=== PATIENT | male | born 1935 | race Caucasian/White ===

== ENCOUNTER 2017-08-12 18:35 | Emergency (ER) | payer MEDICARE, OTHER ==
[~2017-08-12] VITALS: Ht 188 cm; Wt 65.0 kg
[~2017-08-12 18:35] MED LIST: ALPR-624 PO; ASPI81TA PEG; CLON-528 PO; ISOS30TA6 PO; LISI10TA4 PO; MYL80T PO; NITR0.4T SL; OLAN10TA19 PO; OMEP20CA10 PO
[2017-08-12 19:33] LABS: BASOPHILS % (AUTO) 0.6 % (0-1); EOSINOPHILS # (AUTO) 0.1 X10'3 (0-0.9); EOSINOPHILS % (AUTO) 2.4 % (0-6); HEMATOCRIT 40.8 % (42.0-52.0); LYMPHOCYTES # (AUTO) 1.4 X10'3 (1.1-4.8); LYMPHOCYTES % (AUTO) 25.7 % (21-51); MEAN CORPUSCULAR HEMOGLOBIN 32.7 PG (27.0-31.0); MEAN CORPUSCULAR HGB CONC 34.3 % (33.0-36.5); MEAN CORPUSCULAR VOLUME 95.2 FL (78-98); MONOCYTES # (AUTO) 0.5 X10'3 (0-0.9); MONOCYTES % (AUTO) 8.5 % (2-12); NEUTROPHILS # (AUTO) 3.5 X10'3 (1.8-7.7); NEUTROPHILS % (AUTO) 62.8 % (42-75); PLATELET COUNT 107 X10'3 (140-440); RED BLOOD COUNT 4.29 X10'6 (4.70-6.10); WHITE BLOOD COUNT 5.6 X10'3 (4.5-11.0)
[2017-08-12 19:37] LABS: INR 1.1 INR; PARTIAL THROMBOPLASTIN TIME 27 SECONDS (22-32); PROTHROMBIN TIME 10.9 SECONDS (9.0-12.0)
[2017-08-12 19:42] LABS: ALANINE AMINOTRANSFERASE 57 U/L (12-78); ALBUMIN 3.3 G/DL (3.4-5.0); ALBUMIN/GLOBULIN RATIO 0.9 (1.1-1.5); ALKALINE PHOSPHATASE 81 IU/L (46-116); ANION GAP 7 (8-16); ASPARTATE AMINO TRANSFERASE 43 U/L (10-37); BILIRUBIN,TOTAL 0.7 MG/DL (0.1-1.0); BLOOD UREA NITROGEN 13 MG/DL (7-18); BUN/CREATININE RATIO 10.7 (5.4-32.0); CALCIUM 8.8 MG/DL (8.5-10.1); CHLORIDE 96 MMOL/L (99-107); CREATININE 1.21 MG/DL (0.60-1.10); POTASSIUM 3.8 MMOL/L (3.5-5.1); SODIUM 127 MMOL/L (135-145); TOTAL CARBON DIOXIDE 24.4 MMOL/L (24-32); TOTAL PROTEIN 7.1 G/DL (6.4-8.2); eGFR 58 ML/MIN
[2017-08-12 19:43] LABS: GLUCOSE 116 MG/DL (70-104)
[2017-08-12] MEDS ORDERED: iohexol 300mg/ml 100ml inj. ONE (20:50)
[2017-08-12] MEDS ORDERED: diatr meglu/diatrizoate 30ml oral sol.-(3 dose) bottle PO ONE (22:40)
[2017-08-12 23:19] VITALS: BP 163/74
== END 2017-08-13 00:28 | disposition home or self-care (01) ==
LOC: ER 18:36
DX: R13.10 Dysphagia, unspecified (principal); R07.0 Pain in throat; I25.10 Atherosclerotic heart disease of native coronary artery without angina pectoris; I10 Essential (primary) hypertension; Z98.890 Other specified postprocedural states; Z60.2 Problems related to living alone; Z88.8 Allergy status to other drugs, medicaments and biological substances; Z88.0 Allergy status to penicillin; Z79.82 Long term (current) use of aspirin; Z79.899 Other long term (current) drug therapy
CPT/HCPCS: 36415; 70360; 70450; 70491; 71045; 71250; 80053; 84484; 85025; 85610; 85730; 93005; 99285; J7030; Q9963; Q9967

== ENCOUNTER 2017-10-06 12:42 | Observation (INO) | payer MEDICARE, OTHER ==
[~2017-10-06] VITALS: Ht 188 cm; Wt 58.5 kg
[2017-10-06 13:23] LABS: ALANINE AMINOTRANSFERASE 46 U/L (12-78); ALBUMIN 3.5 G/DL (3.4-5.0); ALBUMIN/GLOBULIN RATIO 0.8 (1.1-1.5); ALKALINE PHOSPHATASE 87 IU/L (46-116); ANION GAP 7 (8-16); ASPARTATE AMINO TRANSFERASE 35 U/L (10-37); BILIRUBIN,TOTAL 0.7 MG/DL (0.1-1.0); BLOOD UREA NITROGEN 17 MG/DL (7-18); BUN/CREATININE RATIO 14.2 (5.4-32.0); CALCIUM 8.6 MG/DL (8.5-10.1); CHLORIDE 95 MMOL/L (99-107); POTASSIUM 4.4 MMOL/L (3.5-5.1); SODIUM 131 MMOL/L (135-145); TOTAL CARBON DIOXIDE 28.8 MMOL/L (24-32); TOTAL PROTEIN 7.7 G/DL (6.4-8.2); eGFR 58 ML/MIN
[2017-10-06 13:27] LABS: TROPONIN I < 0.04 NG/ML (0.0-0.05)
[2017-10-06 13:34] LABS: GLUCOSE 125 MG/DL (70-104)
[2017-10-06] MEDS ORDERED: aspirin 325mg tablet PO ONE (13:35)
[2017-10-06 13:47] LABS: BASOPHILS % (AUTO) 0.8 % (0-1); EOSINOPHILS # (AUTO) 0.1 X10'3 (0-0.9); EOSINOPHILS % (AUTO) 1.8 % (0-6); HEMATOCRIT 41.4 % (42.0-52.0); HEMOGLOBIN 14.3 g/dl (14.0-17.9); LYMPHOCYTES # (AUTO) 1.3 X10'3 (1.1-4.8); LYMPHOCYTES % (AUTO) 22.6 % (21-51); MEAN CORPUSCULAR HEMOGLOBIN 32.5 PG (27.0-31.0); MEAN CORPUSCULAR HGB CONC 34.5 % (33.0-36.5); MEAN CORPUSCULAR VOLUME 94.3 FL (78-98); MEAN PLATELET VOLUME 6.9 FL (7.4-10.4); MONOCYTES # (AUTO) 0.6 X10'3 (0-0.9); MONOCYTES % (AUTO) 9.5 % (2-12); NEUTROPHILS # (AUTO) 3.8 X10'3 (1.8-7.7); NEUTROPHILS % (AUTO) 65.3 % (42-75); PLATELET COUNT 97 X10'3 (140-440); RED CELL DISTRIBUTION WIDTH 13.3 % (11.5-14.5); WHITE BLOOD COUNT 5.8 X10'3 (4.5-11.0)
[2017-10-06 13:58] LABS: INR 1.1 INR; PARTIAL THROMBOPLASTIN TIME 27 SECONDS (22-32); PROTHROMBIN TIME 11.2 SECONDS (9.0-12.0)
[2017-10-06] MEDS ORDERED: magnesium Cl slow-release 64mg tablet PO PRN (14:40)
[2017-10-06] MEDS ORDERED: magnesium 1gm/100ml D5W IVPB 100 ML IV PRN (14:40)
[2017-10-06] MEDS ORDERED: magnesium 4gm in 100ml NS 100 ML IV PRN (14:40)
[2017-10-06] MEDS ORDERED: potassium Cl 20 mEq SR tablet PO PRN ×2 (14:40)
[2017-10-06] MEDS ORDERED: mag hydrox/Alum hydrox/simeth 30ml oral suspension PO PRN (14:40)
[2017-10-06] MEDS ORDERED: potassium Cl 40MEQ/NS 500ml 500 ML IV PRN ×2 (14:40)
[2017-10-06] MEDS ORDERED: acetaminophen 325mg tablet PO PRN (14:40)
[2017-10-06] MEDS ORDERED: ondansetron/PF 4mg/2ml inj IV PRN (14:40)
[2017-10-06 15:50] VITALS: BP 122/74
[2017-10-06] MEDS: normal saline 1000ml 1,000 ML IV SCH ×2 (17:40→19:43)
[2017-10-06 18:00] VITALS: BP 162/72
[2017-10-06 22:00] VITALS: BP 142/64
[2017-10-07 06:00] VITALS: BP 147/63
[2017-10-07 07:19] LABS: BASOPHILS % (AUTO) 0.5 % (0-1); EOSINOPHILS # (AUTO) 0.1 X10'3 (0-0.9); EOSINOPHILS % (AUTO) 2.3 % (0-6); HEMATOCRIT 38.6 % (42.0-52.0); HEMOGLOBIN 13.4 g/dl (14.0-17.9); LYMPHOCYTES # (AUTO) 1.5 X10'3 (1.1-4.8); LYMPHOCYTES % (AUTO) 27.2 % (21-51); MEAN CORPUSCULAR HEMOGLOBIN 32.6 PG (27.0-31.0); MEAN CORPUSCULAR HGB CONC 34.8 % (33.0-36.5); MEAN CORPUSCULAR VOLUME 93.7 FL (78-98); MONOCYTES # (AUTO) 0.5 X10'3 (0-0.9); MONOCYTES % (AUTO) 8.6 % (2-12); NEUTROPHILS # (AUTO) 3.5 X10'3 (1.8-7.7); NEUTROPHILS % (AUTO) 61.4 % (42-75); PLATELET COUNT 97 X10'3 (140-440); RED BLOOD COUNT 4.12 X10'6 (4.70-6.10); RED CELL DISTRIBUTION WIDTH 13.2 % (11.5-14.5); WHITE BLOOD COUNT 5.6 X10'3 (4.5-11.0)
[2017-10-07 07:39] LABS: ALBUMIN 3.1 G/DL (3.4-5.0); ANION GAP 6 (8-16); BLOOD UREA NITROGEN 12 MG/DL (7-18); BUN/CREATININE RATIO 9.9 (5.4-32.0); CALCIUM 8.6 MG/DL (8.5-10.1); CHLORIDE 96 MMOL/L (99-107); CHOL/HDL RATIO 1.6 (0.00-4.99); CHOLESTEROL 95 MG/DL (0-200); CREATININE 1.21 MG/DL (0.60-1.10); GLUCOSE 93 MG/DL (70-104); HDL CHOLESTEROL 58 MG/DL (35-60); LDL CHOLESTEROL 34 MG/DL (50-100); MAGNESIUM 1.5 MG/DL (1.5-2.4); POTASSIUM 4.4 MMOL/L (3.5-5.1); SODIUM 129 MMOL/L (135-145); TOTAL CARBON DIOXIDE 26.8 MMOL/L (24-32); TRIGLYCERIDES 27 MG/DL (20-135); eGFR 58 ML/MIN
[2017-10-07] MEDS ORDERED: K and/or MAG REPLACEMENT MC SCH (08:00)
[2017-10-07] MEDS ORDERED: clonazePAM 1mg tablet PO SCH (08:00)
[2017-10-07] MEDS ORDERED: aspirin 325mg tablet PO SCH (08:30)
[2017-10-07] MEDS ORDERED: ALPRAZolam 0.5mg tablet PO PRN (09:45)
[2017-10-07] MEDS ORDERED: ASPI-1 PO (12:31)
[2017-10-07 14:00] VITALS: BP 119/62
[2017-10-07] MEDS ORDERED: clonazePAM 0.5mg tablet PO SCH (20:00)
[2017-10-07] MEDS ORDERED: olanzapine 10mg tablet PO SCH (21:00)
[2017-10-08] MEDS ORDERED: isosorbide mononitrate 30mg tab.SR.24H PO SCH (08:00)
[2017-10-08] MEDS ORDERED: nicotine 7mg patch - 24hr TD SCH (08:00)
[2017-10-08] MEDS ORDERED: lisinopril 10 MG tablet PO SCH (08:00)
== END 2017-10-07 16:45 | disposition home or self-care (01) ==
LOC: ER 12:43 → SSTAY O 14:37 → ORTHO 4S 16:57
PROVIDERS: ADMIT Internal Medicine; ATTEND Internal Medicine
DX: R20.2 Paresthesia of skin (principal); I25.10 Atherosclerotic heart disease of native coronary artery without angina pectoris; I10 Essential (primary) hypertension; F03.90 Unspecified dementia, unspecified severity, without behavioral disturbance, psychotic disturbance, mood disturbance, and anxiety; F41.9 Anxiety disorder, unspecified; F17.210 Nicotine dependence, cigarettes, uncomplicated; Z60.2 Problems related to living alone
CPT/HCPCS: 36415; 70450; 70544; 70547; 70551; 71045; 80048; 80053; 80061; 82948; 83735; 84484; 85025; 85610; 85730; 87070; 93005; 93880; 99285; A6258; G0378; J7030; J3490

== ENCOUNTER 2017-10-30 00:38 | Inpatient (IN) | payer MEDICARE, OTHER ==
[~2017-10-30] VITALS: Ht 188 cm; Wt 100.0 kg
[~2017-10-30 00:38] MED LIST changes: +ASPI-1 PO; -ASPI81TA PEG; -MYL80T PO; -NITR0.4T SL; -OMEP20CA10 PO
[2017-10-30] MEDS ORDERED: normal saline 1000ml 1,000 ML IV ONE (01:10)
[2017-10-30] MEDS ORDERED: meclizine 12.5mg tablet PO ONE (01:10)
[2017-10-30 02:44] LABS: BASOPHILS % (AUTO) 0.5 % (0-1); EOSINOPHILS # (AUTO) 0.1 X10'3 (0-0.9); EOSINOPHILS % (AUTO) 2.2 % (0-6); HEMATOCRIT 39.6 % (42.0-52.0); HEMOGLOBIN 13.6 g/dl (14.0-17.9); LYMPHOCYTES # (AUTO) 1.9 X10'3 (1.1-4.8); LYMPHOCYTES % (AUTO) 30.5 % (21-51); MEAN CORPUSCULAR HGB CONC 34.3 % (33.0-36.5); MEAN CORPUSCULAR VOLUME 93.5 FL (78-98); MEAN PLATELET VOLUME 7.3 FL (7.4-10.4); MONOCYTES # (AUTO) 0.5 X10'3 (0-0.9); MONOCYTES % (AUTO) 8.6 % (2-12); NEUTROPHILS # (AUTO) 3.7 X10'3 (1.8-7.7); NEUTROPHILS % (AUTO) 58.2 % (42-75); PLATELET COUNT 147 X10'3 (140-440); RED BLOOD COUNT 4.23 X10'6 (4.70-6.10); RED CELL DISTRIBUTION WIDTH 12.7 % (11.5-14.5); WHITE BLOOD COUNT 6.3 X10'3 (4.5-11.0)
[2017-10-30 02:53] LABS: ALANINE AMINOTRANSFERASE 32 U/L (12-78); ALBUMIN 3.1 G/DL (3.4-5.0); ALBUMIN/GLOBULIN RATIO 0.7 (1.1-1.5); ALKALINE PHOSPHATASE 91 IU/L (46-116); ANION GAP 7 (8-16); ASPARTATE AMINO TRANSFERASE 32 U/L (10-37); BILIRUBIN,TOTAL 0.7 MG/DL (0.1-1.0); BLOOD UREA NITROGEN 14 MG/DL (7-18); CALCIUM 8.2 MG/DL (8.5-10.1); CHLORIDE 94 MMOL/L (99-107); CREATININE 1.08 MG/DL (0.60-1.10); POTASSIUM 4.3 MMOL/L (3.5-5.1); SODIUM 128 MMOL/L (135-145); TOTAL CARBON DIOXIDE 26.7 MMOL/L (24-32); TOTAL PROTEIN 7.4 G/DL (6.4-8.2); eGFR 66 ML/MIN
[2017-10-30 03:08] LABS: GLUCOSE 97 MG/DL (70-104)
[2017-10-30] MEDS ORDERED: vancomycin/NS 1 GM ADD-VANTAGE 250 ML IV ONE (04:00)
[2017-10-30] MEDS ORDERED: vancomycin inj 1,000 MG in normal saline 250ml IV soln 250 ML IV ONE (04:00)
[2017-10-30] MEDS ORDERED: mag hydrox/Alum hydrox/simeth 30ml oral suspension PO PRN (04:30)
[2017-10-30] MEDS ORDERED: acetaminophen 650mg rectal suppository RC PRN (04:30)
[2017-10-30] MEDS ORDERED: morphine 2 MG/ML inj. syringe IV PRN ×2 (04:30)
[2017-10-30] MEDS ORDERED: magnesium hydroxide 30ml (MOM) UD suspension PO PRN (04:30)
[2017-10-30] MEDS ORDERED: acetaminophen 325mg tablet PO PRN (04:30)
[2017-10-30] MEDS ORDERED: HYDROcodone/acetaminophen 5mg/325mg tablet PO PRN (04:30)
[2017-10-30] MEDS ORDERED: HYDROmorphone 1 mg/ml syringe IV PRN ×2 (04:30)
[2017-10-30] MEDS ORDERED: metoclopramide 5 mg/ml inj IV PRN (04:30)
[2017-10-30] MEDS ORDERED: diphenhydrAMINE 25mg capsule PO PRN (04:30)
[2017-10-30] MEDS ORDERED: HYDROcodone/acetaminophen 10/325mg tab PO PRN (04:30)
[2017-10-30] MEDS ORDERED: bisacodyl 10mg suppository rectal RC PRN (04:30)
[2017-10-30] MEDS ORDERED: ondansetron/PF 4mg/2ml inj IV PRN (04:30)
[2017-10-30] MEDS ORDERED: diphenhydrAMINE 50 mg/ml inj IV PRN (04:30)
[2017-10-30 05:17] LABS: HEMOGLOBIN A1C 5.6 % (4.5-6.2)
[2017-10-30 05:30] VITALS: BP 127/67
[2017-10-30 06:11] LABS: MAGNESIUM 1.9 MG/DL (1.5-2.4); PHOSPHORUS 3.1 MG/DL (2.3-4.5)
[2017-10-30] MEDS: normal saline 1000ml 1,000 ML IV SCH ×2 (06:23→14:28)
[2017-10-30] MEDS: heparin, porcine 5000 units/ml vial SQ SCH ×2 (08:00→20:00)
[2017-10-30] MEDS ORDERED: vancomycin/NS 1 GM ADD-VANTAGE 250 ML IV SCH (08:00)
[2017-10-30] MEDS: docusate sod 100mg capsule PO SCH ×2 (08:30→20:00)
[2017-10-30] MEDS: pantoprazole 40mg Tablet.DR PO SCH (08:31)
[2017-10-30] MEDS: levoFLOXACIN-Levaquin 500mg/D5 100 ML IV SCH (08:32)
[2017-10-30] MEDS: nicotine 21mg patch - 24 hr TD SCH (08:35)
[2017-10-30] MEDS: Cipro HC otic suspension 10ML bottle RIGHT EAR SCH ×2 (08:37→19:40)
[2017-10-30 10:00] VITALS: BP 108/54
[2017-10-30] MEDS ORDERED: ASPI-611 PO (13:43)
[2017-10-30] MEDS ORDERED: CLOP75TA15 PO (13:44)
[2017-10-30] MEDS ORDERED: ATOR10TA PO (13:45)
[2017-10-30 17:00] VITALS: BP 116/63
[2017-10-30] MEDS: ALPRAZolam 0.25mg tablet PO SCH (17:41)
[2017-10-30] MEDS ORDERED: temazepam 15mg capsule PO PRN (21:00)
[2017-10-30 22:00] VITALS: BP 136/65
[2017-10-31] MEDS: normal saline 1000ml 1,000 ML IV SCH ×2 (00:28→10:28)
[2017-10-31 05:00] VITALS: BP 149/69
[2017-10-31 05:46] LABS: BASOPHILS % (AUTO) 0.7 % (0-1); EOSINOPHILS # (AUTO) 0.1 X10'3 (0-0.9); EOSINOPHILS % (AUTO) 2.7 % (0-6); HEMATOCRIT 37.6 % (42.0-52.0); HEMOGLOBIN 12.9 g/dl (14.0-17.9); LYMPHOCYTES # (AUTO) 1.5 X10'3 (1.1-4.8); MEAN CORPUSCULAR HEMOGLOBIN 31.6 PG (27.0-31.0); MEAN CORPUSCULAR HGB CONC 34.2 % (33.0-36.5); MEAN CORPUSCULAR VOLUME 92.3 FL (78-98); MEAN PLATELET VOLUME 6.8 FL (7.4-10.4); MONOCYTES # (AUTO) 0.6 X10'3 (0-0.9); NEUTROPHILS # (AUTO) 2.9 X10'3 (1.8-7.7); NEUTROPHILS % (AUTO) 56.6 % (42-75); PLATELET COUNT 133 X10'3 (140-440); RED BLOOD COUNT 4.08 X10'6 (4.70-6.10); RED CELL DISTRIBUTION WIDTH 12.8 % (11.5-14.5); WHITE BLOOD COUNT 5.2 X10'3 (4.5-11.0)
[2017-10-31] MEDS: ALPRAZolam 0.25mg tablet PO SCH ×2 (06:29→11:59)
[2017-10-31 06:36] LABS: ALANINE AMINOTRANSFERASE 18 U/L (12-78); ALBUMIN 2.8 G/DL (3.4-5.0); ALBUMIN/GLOBULIN RATIO 0.7 (1.1-1.5); ALKALINE PHOSPHATASE 78 IU/L (46-116); ANION GAP 5 (8-16); ASPARTATE AMINO TRANSFERASE 17 U/L (10-37); BILIRUBIN,TOTAL 0.9 MG/DL (0.1-1.0); BLOOD UREA NITROGEN 11 MG/DL (7-18); BUN/CREATININE RATIO 10.4 (5.4-32.0); CALCIUM 8.3 MG/DL (8.5-10.1); CHLORIDE 102 MMOL/L (99-107); CHOL/HDL RATIO 1.8 (0.00-4.99); CHOLESTEROL 85 MG/DL (0-200); CREATININE 1.06 MG/DL (0.60-1.10); GLUCOSE 91 MG/DL (70-104); HDL CHOLESTEROL 46 MG/DL (35-60); LDL CHOLESTEROL 34 MG/DL (50-100); POTASSIUM 4.3 MMOL/L (3.5-5.1); SODIUM 135 MMOL/L (135-145); TOTAL CARBON DIOXIDE 27.6 MMOL/L (24-32); TOTAL PROTEIN 6.6 G/DL (6.4-8.2); TRIGLYCERIDES 22 MG/DL (20-135); eGFR 67 ML/MIN
[2017-10-31] MEDS: docusate sod 100mg capsule PO SCH (07:08)
[2017-10-31] MEDS: levoFLOXACIN-Levaquin 500mg/D5 100 ML IV SCH (07:08)
[2017-10-31] MEDS: nicotine 21mg patch - 24 hr TD SCH ×2 (07:08→08:00)
[2017-10-31] MEDS: pantoprazole 40mg Tablet.DR PO SCH (07:08)
[2017-10-31] MEDS: Cipro HC otic suspension 10ML bottle RIGHT EAR SCH (07:09)
[2017-10-31] MEDS: heparin, porcine 5000 units/ml vial SQ SCH (07:11)
[2017-10-31 11:05] VITALS: BP 152/69
[2017-10-31] MEDS ORDERED: NICO-687 TD (11:17)
[2017-10-31] MEDS ORDERED: LEVO500T2 PO (11:17)
[2017-11-01] MEDS ORDERED: VANCOMYCIN LEVEL IV NR (02:30)
[2017-11-01] MEDS ORDERED: levoFLOXACIN 500mg tablet PO SCH (11:00)
== END 2017-10-31 13:25 | disposition home or self-care (01) | DRG 153 ==
LOC: ER 00:38 → ED HOLD 04:28 → ORTHO 4S 05:40
PROVIDERS: ADMIT Family Medicine; ATTEND Family Medicine
DX: H70.91 Unspecified mastoiditis, right ear (principal); E87.1 Hypo-osmolality and hyponatremia; H66.91 Otitis media, unspecified, right ear; E78.00 Pure hypercholesterolemia, unspecified; J32.4 Chronic pansinusitis; I11.0 Hypertensive heart disease with heart failure; F41.1 Generalized anxiety disorder; Z60.2 Problems related to living alone; I50.9 Heart failure, unspecified; F03.90 Unspecified dementia, unspecified severity, without behavioral disturbance, psychotic disturbance, mood disturbance, and anxiety; F17.210 Nicotine dependence, cigarettes, uncomplicated; I25.10 Atherosclerotic heart disease of native coronary artery without angina pectoris; F41.9 Anxiety disorder, unspecified; Z88.1 Allergy status to other antibiotic agents; Z88.0 Allergy status to penicillin; Z79.899 Other long term (current) drug therapy; Z79.82 Long term (current) use of aspirin; Z71.6 Tobacco abuse counseling
CPT/HCPCS: 36415; 70450; 80053; 80061; 83036; 83605; 83735; 83880; 84100; 85025; 87040; 87070; 96361; 96374; 97110; 97116; 97162; 97530; 99285; A6209; A6449; J1644; J1956; J3370; J7030; J8597

== ENCOUNTER 2017-11-14 10:25 | Inpatient (IN) | payer MEDICARE, OTHER ==
[~2017-11-14] VITALS: Ht 188 cm; Wt 77.1 kg
[~2017-11-14 10:25] MED LIST changes: -ASPI-1 PO; +ASPI-611 PO; +ATOR10TA PO; +CLOP75TA15 PO; +LEVO500T2 PO; -LISI10TA4 PO; +NICO-687 TD
[2017-11-14] MEDS ORDERED: normal saline 1000ML IV soln IVB ONE (10:40)
[2017-11-14 11:06] LABS: BASOPHILS % (AUTO) 0.5 % (0-1); EOSINOPHILS # (AUTO) 0.1 X10'3 (0-0.9); EOSINOPHILS % (AUTO) 1.2 % (0-6); HEMATOCRIT 36.8 % (42.0-52.0); HEMOGLOBIN 12.7 g/dl (14.0-17.9); LYMPHOCYTES # (AUTO) 0.9 X10'3 (1.1-4.8); LYMPHOCYTES % (AUTO) 16.6 % (21-51); MEAN CORPUSCULAR HEMOGLOBIN 32.3 PG (27.0-31.0); MEAN CORPUSCULAR HGB CONC 34.6 % (33.0-36.5); MEAN CORPUSCULAR VOLUME 93.5 FL (78-98); MEAN PLATELET VOLUME 7.6 FL (7.4-10.4); MONOCYTES # (AUTO) 0.5 X10'3 (0-0.9); MONOCYTES % (AUTO) 10.2 % (2-12); NEUTROPHILS # (AUTO) 3.8 X10'3 (1.8-7.7); NEUTROPHILS % (AUTO) 71.5 % (42-75); PLATELET COUNT 94 X10'3 (140-440); RED BLOOD COUNT 3.94 X10'6 (4.70-6.10); RED CELL DISTRIBUTION WIDTH 12.9 % (11.5-14.5); WHITE BLOOD COUNT 5.3 X10'3 (4.5-11.0)
[2017-11-14 11:13] LABS: INR 1.1 INR; PROTHROMBIN TIME 11.8 SECONDS (9.0-12.0)
[2017-11-14 11:20] LABS: ALANINE AMINOTRANSFERASE 36 U/L (12-78); ALBUMIN/GLOBULIN RATIO 0.8 (1.1-1.5); ALKALINE PHOSPHATASE 83 IU/L (46-116); ANION GAP 5 (8-16); ASPARTATE AMINO TRANSFERASE 33 U/L (10-37); BILIRUBIN,TOTAL 0.7 MG/DL (0.1-1.0); BLOOD UREA NITROGEN 17 MG/DL (7-18); BUN/CREATININE RATIO 14.7 (5.4-32.0); CALCIUM 8.4 MG/DL (8.5-10.1); CHLORIDE 97 MMOL/L (99-107); CREATININE 1.16 MG/DL (0.60-1.10); GLUCOSE 105 MG/DL (70-104); SODIUM 132 MMOL/L (135-145); TOTAL CARBON DIOXIDE 30.4 MMOL/L (24-32); TOTAL PROTEIN 6.7 G/DL (6.4-8.2); eGFR 60 ML/MIN
[2017-11-14 11:22] LABS: TROPONIN I < 0.04 NG/ML (0.0-0.05)
[2017-11-14 11:23] LABS: ETHANOL < 0.010 GM/DL (0.0-0.010)
[2017-11-14] MEDS ORDERED: mag hydrox/Alum hydrox/simeth 30ml oral suspension PO PRN (11:50)
[2017-11-14] MEDS ORDERED: magnesium 1gm/100ml D5W IVPB 100 ML IV PRN (11:50)
[2017-11-14] MEDS ORDERED: potassium Cl 40MEQ/NS 500ml 500 ML IV PRN ×2 (11:50)
[2017-11-14] MEDS ORDERED: haloperidol lactate 5mg/ml inj IM PRN (11:50)
[2017-11-14] MEDS ORDERED: morphine 2 MG/ML inj. syringe IV PRN ×2 (11:50)
[2017-11-14] MEDS ORDERED: bisacodyl 10mg suppository rectal RC PRN (11:50)
[2017-11-14] MEDS ORDERED: acetaminophen 325mg tablet PO PRN (11:50)
[2017-11-14] MEDS ORDERED: LORazepam 2 mg/ml vial IV PRN (11:50)
[2017-11-14] MEDS ORDERED: ipratropium/albuterol 3ml nebule NEB PRN (11:50)
[2017-11-14] MEDS ORDERED: dextrose 50%-water 50ml dispensing syringe IV PRN (11:50)
[2017-11-14] MEDS ORDERED: haloperidol 5mg tablet PO PRN (11:50)
[2017-11-14] MEDS ORDERED: LORazepam 1 MG tablet PO PRN (11:50)
[2017-11-14] MEDS ORDERED: docusate sod 100mg capsule PO PRN (11:50)
[2017-11-14] MEDS ORDERED: magnesium 4gm in 100ml NS 100 ML IV PRN (11:50)
[2017-11-14] MEDS ORDERED: potassium Cl 20 mEq SR tablet PO PRN ×2 (11:50)
[2017-11-14] MEDS ORDERED: ondansetron/PF 4mg/2ml inj IV PRN (11:50)
[2017-11-14] MEDS ORDERED: thiamine 100mg/ml 2ml inj. IV ONE (11:50)
[2017-11-14] MEDS ORDERED: ALPRAZolam 0.5mg tablet PO PRN (13:45)
[2017-11-14 14:13] LABS: CLARITY,URINE CLEAR (Clear); COLOR,URINE YELLOW (Yellow); GLUCOSE, URINE 250 mg/dl (Neg); KETONES,URINE NEGATIVE (Neg); LEUKOCYTE ESTERASE ,URINE NEGATIVE (Neg); NITRITES, URINE NEGATIVE (Neg); OCCULT BLOOD,URINE NEGATIVE (Neg); PROTEIN,URINE NEGATIVE (Neg)
[2017-11-14 14:20] LABS: UA COLLECTION TYPE CLN CATCH MIDSTREAM
[2017-11-14 14:25] LABS: URINE AMPHETAMINE SCREEN NEGATIVE (Neg); URINE BARBITUATE SCREEN NEGATIVE (Neg); URINE BENZODIAZEPINES SCREEN POSITIVE (Neg); URINE CANNABINOID SCREEN NEGATIVE (Neg); URINE COCAINE SCREEN NEGATIVE (Neg); URINE METHADONE SCREEN NEGATIVE (Neg); URINE OPIATE SCREEN NEGATIVE (Neg); URINE PHENCYCLIDINE SCREEN NEGATIVE (Neg)
[2017-11-14 14:28] VITALS: BP 145/91
[2017-11-14] MEDS: nicotine 21mg patch - 24 hr TD SCH (15:33)
[2017-11-14] MEDS: normal saline 1000ml 1,000 ML IV SCH ×2 (15:33→23:56)
[2017-11-14] MEDS ORDERED: LORazepam 2 mg/ml vial IV ONE (17:15)
[2017-11-14 18:30] VITALS: BP 151/68
[2017-11-14] MEDS: clonazePAM 0.5mg tablet PO SCH (19:37)
[2017-11-14] MEDS ORDERED: olanzapine 10mg tablet PO SCH (21:00)
[2017-11-15] VITALS: BP 121/61
[2017-11-15 05:51] LABS: BASOPHILS % (AUTO) 0.5 % (0-1); EOSINOPHILS # (AUTO) 0.1 X10'3 (0-0.9); EOSINOPHILS % (AUTO) 2.6 % (0-6); HEMATOCRIT 33.4 % (42.0-52.0); HEMOGLOBIN 11.8 g/dl (14.0-17.9); LYMPHOCYTES # (AUTO) 1.7 X10'3 (1.1-4.8); MEAN CORPUSCULAR HEMOGLOBIN 33.2 PG (27.0-31.0); MEAN CORPUSCULAR HGB CONC 35.2 % (33.0-36.5); MEAN CORPUSCULAR VOLUME 94.1 FL (78-98); MEAN PLATELET VOLUME 8.1 FL (7.4-10.4); MONOCYTES # (AUTO) 0.5 X10'3 (0-0.9); MONOCYTES % (AUTO) 10.4 % (2-12); NEUTROPHILS # (AUTO) 2.9 X10'3 (1.8-7.7); NEUTROPHILS % (AUTO) 53.5 % (42-75); PLATELET COUNT 83 X10'3 (140-440); RED BLOOD COUNT 3.55 X10'6 (4.70-6.10); RED CELL DISTRIBUTION WIDTH 12.4 % (11.5-14.5); WHITE BLOOD COUNT 5.2 X10'3 (4.5-11.0)
[2017-11-15 06:04] LABS: ALANINE AMINOTRANSFERASE 32 U/L (12-78); ALBUMIN 2.8 G/DL (3.4-5.0); ALBUMIN/GLOBULIN RATIO 0.8 (1.1-1.5); ALKALINE PHOSPHATASE 76 IU/L (46-116); ANION GAP 7 (8-16); ASPARTATE AMINO TRANSFERASE 35 U/L (10-37); BILIRUBIN,TOTAL 0.8 MG/DL (0.1-1.0); BLOOD UREA NITROGEN 13 MG/DL (7-18); BUN/CREATININE RATIO 11.3 (5.4-32.0); CHLORIDE 100 MMOL/L (99-107); CHOL/HDL RATIO 1.8 (0.00-4.99); CHOLESTEROL 92 MG/DL (0-200); CREATININE 1.15 MG/DL (0.60-1.10); GLUCOSE 87 MG/DL (70-104); HDL CHOLESTEROL 50 MG/DL (35-60); LDL CHOLESTEROL 36 MG/DL (50-100); MAGNESIUM 1.7 MG/DL (1.5-2.4); POTASSIUM 4.2 MMOL/L (3.5-5.1); SODIUM 134 MMOL/L (135-145); TOTAL CARBON DIOXIDE 26.8 MMOL/L (24-32); TOTAL PROTEIN 6.4 G/DL (6.4-8.2); TRIGLYCERIDES 29 MG/DL (20-135); eGFR 61 ML/MIN
[2017-11-15 07:00] VITALS: BP 125/62
[2017-11-15] MEDS: clonazePAM 0.5mg tablet PO SCH (07:26)
[2017-11-15] MEDS: nicotine 21mg patch - 24 hr TD SCH (07:27)
[2017-11-15] MEDS ORDERED: clopidogrel 75mg tablet PO SCH (08:00)
[2017-11-15] MEDS ORDERED: atorvastatin 10mg tablet PO SCH (08:00)
[2017-11-15] MEDS ORDERED: K and/or MAG REPLACEMENT MC SCH (08:00)
[2017-11-15] MEDS ORDERED: isosorbide mononitrate 30mg tab.SR.24H PO SCH (08:00)
[2017-11-15] MEDS ORDERED: aspirin 81mg tablet.DR PO SCH (08:00)
== END 2017-11-15 12:15 | disposition home health service (06) | DRG 312 ==
LOC: ER 10:26 → ED HOLD 11:49 → EDBEDREQ 12:46 → SUR 3N 13:57
PROVIDERS: ADMIT Family Medicine; ATTEND Internal Medicine
DX: R55 Syncope and collapse (principal); D69.6 Thrombocytopenia, unspecified; E78.00 Pure hypercholesterolemia, unspecified; E86.0 Dehydration; F03.90 Unspecified dementia, unspecified severity, without behavioral disturbance, psychotic disturbance, mood disturbance, and anxiety; F17.210 Nicotine dependence, cigarettes, uncomplicated; F41.9 Anxiety disorder, unspecified; G25.0 Essential tremor; H55.09 Other forms of nystagmus; H70.91 Unspecified mastoiditis, right ear; I10 Essential (primary) hypertension; R56.9 Unspecified convulsions; Z60.2 Problems related to living alone; S81.812A Laceration without foreign body, left lower leg, initial encounter; S81.811A Laceration without foreign body, right lower leg, initial encounter; W01.0XXA Fall on same level from slipping, tripping and stumbling without subsequent striking against object, initial encounter; Y93.01 Activity, walking, marching and hiking; I25.10 Atherosclerotic heart disease of native coronary artery without angina pectoris; N28.9 Disorder of kidney and ureter, unspecified; R32 Unspecified urinary incontinence; Z79.02 Long term (current) use of antithrombotics/antiplatelets; Z79.82 Long term (current) use of aspirin; Z88.0 Allergy status to penicillin; Z88.8 Allergy status to other drugs, medicaments and biological substances; Z79.899 Other long term (current) drug therapy; Y92.488 Other paved roadways as the place of occurrence of the external cause; Y99.8 Other external cause status
CPT/HCPCS: 36415; 70450; 70544; 70547; 70551; 71045; 73590; 80053; 80061; 80305; 80320; 81003; 82948; 83605; 83735; 84484; 85025; 85610; 87040; 87070; 87077; 87186; 92616; 93005; 93306; 94760; 96360; 99285; A4310; J2060; J3411; J3490; J7030

== ENCOUNTER 2017-12-09 16:45 | Emergency (ER) | payer MEDICARE, OTHER ==
[~2017-12-09] VITALS: Ht 188 cm; Wt 80.0 kg
[~2017-12-09 16:45] MED LIST changes: -LEVO500T2 PO
[2017-12-09 16:53] VITALS: BP 119/57
[2017-12-09 17:41] LABS: BASOPHILS % (AUTO) 0.4 % (0-1); EOSINOPHILS # (AUTO) 0.1 X10'3 (0-0.9); EOSINOPHILS % (AUTO) 1.3 % (0-6); HEMATOCRIT 38.9 % (42.0-52.0); LYMPHOCYTES # (AUTO) 1.5 X10'3 (1.1-4.8); LYMPHOCYTES % (AUTO) 18.6 % (21-51); MEAN CORPUSCULAR HEMOGLOBIN 31.7 PG (27.0-31.0); MEAN CORPUSCULAR HGB CONC 33.4 % (33.0-36.5); MEAN CORPUSCULAR VOLUME 95.1 FL (78-98); MEAN PLATELET VOLUME 7.5 FL (7.4-10.4); MONOCYTES # (AUTO) 0.8 X10'3 (0-0.9); MONOCYTES % (AUTO) 9.3 % (2-12); NEUTROPHILS # (AUTO) 5.7 X10'3 (1.8-7.7); NEUTROPHILS % (AUTO) 70.4 % (42-75); PLATELET COUNT 118 X10'3 (140-440); RED BLOOD COUNT 4.09 X10'6 (4.70-6.10); RED CELL DISTRIBUTION WIDTH 14.1 % (11.5-14.5); WHITE BLOOD COUNT 8.1 X10'3 (4.5-11.0)
[2017-12-09 17:55] LABS: ALANINE AMINOTRANSFERASE 29 U/L (12-78); ALBUMIN 3.1 G/DL (3.4-5.0); ALBUMIN/GLOBULIN RATIO 0.8 (1.1-1.5); ALKALINE PHOSPHATASE 95 IU/L (46-116); ANION GAP 5 (8-16); ASPARTATE AMINO TRANSFERASE 26 U/L (10-37); BILIRUBIN,TOTAL 0.9 MG/DL (0.1-1.0); BLOOD UREA NITROGEN 18 MG/DL (7-18); BUN/CREATININE RATIO 15.5 (5.4-32.0); CALCIUM 8.9 MG/DL (8.5-10.1); CHLORIDE 95 MMOL/L (99-107); CREATININE 1.16 MG/DL (0.60-1.10); GLUCOSE 103 MG/DL (70-104); POTASSIUM 4.4 MMOL/L (3.5-5.1); SODIUM 129 MMOL/L (135-145); TOTAL CARBON DIOXIDE 29.1 MMOL/L (24-32); TOTAL PROTEIN 7.2 G/DL (6.4-8.2); eGFR 60 ML/MIN
[2017-12-09 18:02] LABS: PROTHROMBIN TIME 10.8 SECONDS (9.0-12.0)
[2017-12-09 18:03] LABS: INR 1.1 INR; PARTIAL THROMBOPLASTIN TIME 28 SECONDS (22-32)
== END 2017-12-09 18:48 | disposition home or self-care (01) ==
LOC: ER 16:46
DX: R07.89 Other chest pain (principal); F17.200 Nicotine dependence, unspecified, uncomplicated; I25.10 Atherosclerotic heart disease of native coronary artery without angina pectoris; E78.00 Pure hypercholesterolemia, unspecified; I10 Essential (primary) hypertension; Z98.890 Other specified postprocedural states; Z88.1 Allergy status to other antibiotic agents; Z88.0 Allergy status to penicillin; Z79.82 Long term (current) use of aspirin; Z79.899 Other long term (current) drug therapy
CPT/HCPCS: 36415; 71045; 80053; 84484; 85025; 85610; 85730; 93005; 99285

== ENCOUNTER 2018-02-10 14:42 | Emergency (ER) | payer MEDICARE, OTHER ==
[~2018-02-10] VITALS: Ht 188 cm; Wt 75.0 kg
[2018-02-10 15:07] LABS: BASOPHILS % (AUTO) 0.7 % (0-1); EOSINOPHILS # (AUTO) 0.1 X10'3 (0-0.9); EOSINOPHILS % (AUTO) 2.4 % (0-6); HEMATOCRIT 43.2 % (42.0-52.0); HEMOGLOBIN 14.5 g/dl (14.0-17.9); LYMPHOCYTES # (AUTO) 1.5 X10'3 (1.1-4.8); LYMPHOCYTES % (AUTO) 26.7 % (21-51); MEAN CORPUSCULAR HEMOGLOBIN 31.1 PG (27.0-31.0); MEAN CORPUSCULAR HGB CONC 33.5 % (33.0-36.5); MEAN CORPUSCULAR VOLUME 92.7 FL (78-98); MEAN PLATELET VOLUME 7.5 FL (7.4-10.4); MONOCYTES # (AUTO) 0.6 X10'3 (0-0.9); MONOCYTES % (AUTO) 10.8 % (2-12); NEUTROPHILS # (AUTO) 3.3 X10'3 (1.8-7.7); NEUTROPHILS % (AUTO) 59.4 % (42-75); PLATELET COUNT 119 X10'3 (140-440); RED BLOOD COUNT 4.66 X10'6 (4.70-6.10); RED CELL DISTRIBUTION WIDTH 14.5 % (11.5-14.5); WHITE BLOOD COUNT 5.6 X10'3 (4.5-11.0)
[2018-02-10 15:34] LABS: ALANINE AMINOTRANSFERASE 49 U/L (12-78); ALBUMIN 3.5 G/DL (3.4-5.0); ALBUMIN/GLOBULIN RATIO 0.8 (1.1-1.5); ALKALINE PHOSPHATASE 94 IU/L (46-116); ANION GAP 8 (8-16); ASPARTATE AMINO TRANSFERASE 41 U/L (10-37); BLOOD UREA NITROGEN 14 MG/DL (7-18); BUN/CREATININE RATIO 12.7 (5.4-32.0); CALCIUM 8.6 MG/DL (8.5-10.1); CHLORIDE 92 MMOL/L (99-107); GLUCOSE 93 MG/DL (70-104); POTASSIUM 4.7 MMOL/L (3.5-5.1); SODIUM 128 MMOL/L (135-145); TOTAL PROTEIN 7.7 G/DL (6.4-8.2); eGFR 64 ML/MIN
[2018-02-10 16:04] LABS: PROTHROMBIN TIME 11.3 SECONDS (9.0-12.0)
[2018-02-10 16:05] LABS: INR 1.1 INR; PARTIAL THROMBOPLASTIN TIME 29 SECONDS (22-32)
[2018-02-10 16:35] VITALS: BP 179/68
[2018-02-10] MEDS ORDERED: levoFLOXACIN 250mg tablet PO ONE (17:05)
[2018-02-10] MEDS ORDERED: LEVO500T2 PO (17:06)
== END 2018-02-10 17:36 | disposition home or self-care (01) ==
LOC: ER 14:43
DX: J18.9 Pneumonia, unspecified organism (principal); I25.10 Atherosclerotic heart disease of native coronary artery without angina pectoris; E78.00 Pure hypercholesterolemia, unspecified; I10 Essential (primary) hypertension; F17.210 Nicotine dependence, cigarettes, uncomplicated; Z98.890 Other specified postprocedural states; Z88.1 Allergy status to other antibiotic agents; Z88.0 Allergy status to penicillin; Z79.82 Long term (current) use of aspirin; Z79.899 Other long term (current) drug therapy; Z60.2 Problems related to living alone
CPT/HCPCS: 36415; 71045; 80053; 83880; 84484; 85025; 85610; 85730; 87502; 87503; 93005; 99284

== ENCOUNTER 2018-03-16 17:20 | Emergency (ER) | payer MEDICARE, OTHER ==
[~2018-03-16] VITALS: Ht 188 cm; Wt 77.3 kg
[~2018-03-16 17:20] MED LIST changes: +ALPR0.5T8 PO; +LISI-644 PO; +OLAN10TA3 PO
[2018-03-16 17:27] VITALS: BP 175/91
[2018-03-16 18:24] LABS: BASOPHILS % (AUTO) 0.6 % (0-1); EOSINOPHILS # (AUTO) 0.1 X10'3 (0-0.9); EOSINOPHILS % (AUTO) 2.1 % (0-6); HEMATOCRIT 44.5 % (42.0-52.0); HEMOGLOBIN 15.1 g/dl (14.0-17.9); LYMPHOCYTES # (AUTO) 2.1 X10'3 (1.1-4.8); LYMPHOCYTES % (AUTO) 30.7 % (21-51); MEAN CORPUSCULAR HEMOGLOBIN 31.4 PG (27.0-31.0); MEAN CORPUSCULAR HGB CONC 33.8 g/dL (33.0-36.5); MEAN CORPUSCULAR VOLUME 92.9 FL (78-98); MEAN PLATELET VOLUME 8.1 FL (7.4-10.4); MONOCYTES # (AUTO) 0.6 X10'3 (0-0.9); MONOCYTES % (AUTO) 9.4 % (2-12); NEUTROPHILS # (AUTO) 3.9 X10'3 (1.8-7.7); NEUTROPHILS % (AUTO) 57.2 % (42-75); PLATELET COUNT 103 X10'3 (140-440); RED BLOOD COUNT 4.79 X10'6 (4.70-6.10); RED CELL DISTRIBUTION WIDTH 14.6 % (11.5-14.5); WHITE BLOOD COUNT 6.9 X10'3 (4.5-11.0)
[2018-03-16 18:39] LABS: ALANINE AMINOTRANSFERASE 45 U/L (12-78); ALBUMIN 3.6 G/DL (3.4-5.0); ALBUMIN/GLOBULIN RATIO 0.9 (1.1-1.5); ALKALINE PHOSPHATASE 98 IU/L (46-116); ANION GAP 8 (8-16); ASPARTATE AMINO TRANSFERASE 35 U/L (10-37); BILIRUBIN,TOTAL 0.7 MG/DL (0.1-1.0); BLOOD UREA NITROGEN 21 MG/DL (7-18); BUN/CREATININE RATIO 15.9 (5.4-32.0); CHLORIDE 98 MMOL/L (99-107); CREATININE 1.32 MG/DL (0.60-1.10); GLUCOSE 121 MG/DL (70-104); SODIUM 135 MMOL/L (135-145); TOTAL CARBON DIOXIDE 28.7 MMOL/L (24-32); TOTAL PROTEIN 7.7 G/DL (6.4-8.2); eGFR 52 ML/MIN
== END 2018-03-16 20:28 | disposition left against medical advice (07) ==
LOC: ER 17:21
DX: Z53.21 Procedure and treatment not carried out due to patient leaving prior to being seen by health care provider (principal); R53.1 Weakness
CPT/HCPCS: 36415; 80053; 85025; 93005

== ENCOUNTER 2018-04-11 22:28 | Emergency (ER) | payer MEDICARE, OTHER ==
[~2018-04-11] VITALS: Ht 188 cm; Wt 77.2 kg
[2018-04-11 22:55] LABS: BASOPHILS % (AUTO) 0.8 % (0-1); EOSINOPHILS # (AUTO) 0.1 X10'3 (0-0.9); EOSINOPHILS % (AUTO) 1.4 % (0-6); HEMATOCRIT 42.1 % (42.0-52.0); HEMOGLOBIN 14.3 g/dl (14.0-17.9); MEAN CORPUSCULAR HEMOGLOBIN 31.2 PG (27.0-31.0); MONOCYTES # (AUTO) 0.5 X10'3 (0-0.9); MONOCYTES % (AUTO) 8.9 % (2-12); NEUTROPHILS # (AUTO) 3.2 X10'3 (1.8-7.7); NEUTROPHILS % (AUTO) 54.9 % (42-75); PLATELET COUNT 95 X10'3 (140-440); RED BLOOD COUNT 4.58 X10'6 (4.70-6.10); RED CELL DISTRIBUTION WIDTH 14.4 % (11.5-14.5); WHITE BLOOD COUNT 5.9 X10'3 (4.5-11.0)
[2018-04-11 23:08] LABS: INR 1.1 INR; PARTIAL THROMBOPLASTIN TIME 28 SECONDS (22-32); PROTHROMBIN TIME 11.4 SECONDS (9.0-12.0)
[2018-04-11 23:15] LABS: ALANINE AMINOTRANSFERASE 63 U/L (12-78); ALBUMIN 3.6 G/DL (3.4-5.0); ALBUMIN/GLOBULIN RATIO 0.9 (1.1-1.5); ALKALINE PHOSPHATASE 94 IU/L (46-116); ANION GAP 7 (8-16); ASPARTATE AMINO TRANSFERASE 50 U/L (10-37); BILIRUBIN,TOTAL 0.8 MG/DL (0.1-1.0); BLOOD UREA NITROGEN 16 MG/DL (7-18); BUN/CREATININE RATIO 12.8 (5.4-32.0); CALCIUM 8.7 MG/DL (8.5-10.1); CHLORIDE 96 MMOL/L (99-107); CREATININE 1.25 MG/DL (0.60-1.10); POTASSIUM 4.1 MMOL/L (3.5-5.1); SODIUM 129 MMOL/L (135-145); TOTAL CARBON DIOXIDE 25.7 MMOL/L (24-32); TOTAL PROTEIN 7.5 G/DL (6.4-8.2); eGFR 55 ML/MIN
[2018-04-11 23:34] LABS: GLUCOSE 140 MG/DL (70-104)
[2018-04-12 01:43] VITALS: BP 156/53
== END 2018-04-12 01:45 | disposition home or self-care (01) ==
LOC: ER 22:28
DX: R07.9 Chest pain, unspecified (principal); F41.9 Anxiety disorder, unspecified; E78.00 Pure hypercholesterolemia, unspecified; I25.10 Atherosclerotic heart disease of native coronary artery without angina pectoris; I10 Essential (primary) hypertension; Z88.0 Allergy status to penicillin; Z88.1 Allergy status to other antibiotic agents; Z79.82 Long term (current) use of aspirin; Z79.899 Other long term (current) drug therapy
CPT/HCPCS: 36415; 71045; 80053; 84484; 85025; 85610; 85730; 93005; 99284

== ENCOUNTER 2018-06-08 12:18 | Emergency (ER) | payer MEDICARE, OTHER ==
[~2018-06-08] VITALS: Ht 188 cm; Wt 76.0 kg
[2018-06-08 13:04] LABS: BASOPHILS % (AUTO) 0.6 % (0-1); EOSINOPHILS # (AUTO) 0.1 X10'3 (0-0.9); EOSINOPHILS % (AUTO) 1.1 % (0-6); HEMATOCRIT 43.8 % (42.0-52.0); HEMOGLOBIN 14.8 g/dl (14.0-17.9); LYMPHOCYTES # (AUTO) 1.1 X10'3 (1.1-4.8); LYMPHOCYTES % (AUTO) 19.9 % (21-51); MEAN CORPUSCULAR HGB CONC 33.7 g/dL (33.0-36.5); MEAN CORPUSCULAR VOLUME 94.8 FL (78-98); MEAN PLATELET VOLUME 8.1 FL (7.4-10.4); MONOCYTES # (AUTO) 0.5 X10'3 (0-0.9); MONOCYTES % (AUTO) 9.5 % (2-12); NEUTROPHILS # (AUTO) 3.8 X10'3 (1.8-7.7); NEUTROPHILS % (AUTO) 68.9 % (42-75); PLATELET COUNT 103 X10'3 (140-440); RED BLOOD COUNT 4.62 X10'6 (4.70-6.10); RED CELL DISTRIBUTION WIDTH 14.4 % (11.5-14.5); WHITE BLOOD COUNT 5.5 X10'3 (4.5-11.0)
[2018-06-08 13:20] LABS: INR 1.1 INR; PARTIAL THROMBOPLASTIN TIME 28 SECONDS (22-32)
[2018-06-08 13:21] LABS: ALANINE AMINOTRANSFERASE 66 U/L (12-78); ALBUMIN 3.5 G/DL (3.4-5.0); ALBUMIN/GLOBULIN RATIO 0.9 (1.1-1.5); ALKALINE PHOSPHATASE 103 IU/L (46-116); ANION GAP 5 (8-16); ASPARTATE AMINO TRANSFERASE 50 U/L (10-37); BILIRUBIN,TOTAL 0.8 MG/DL (0.1-1.0); BLOOD UREA NITROGEN 13 MG/DL (7-18); BUN/CREATININE RATIO 12.9 (5.4-32.0); CALCIUM 9.5 MG/DL (8.5-10.1); CHLORIDE 100 MMOL/L (99-107); CREATININE 1.01 MG/DL (0.60-1.10); GLUCOSE 95 MG/DL (70-104); POTASSIUM 4.4 MMOL/L (3.5-5.1); SODIUM 135 MMOL/L (135-145); TOTAL CARBON DIOXIDE 30.2 MMOL/L (24-32); TOTAL PROTEIN 7.4 G/DL (6.4-8.2); eGFR 71 ML/MIN
[2018-06-08 15:47] VITALS: BP 119/75
== END 2018-06-08 15:48 | disposition home or self-care (01) ==
LOC: ER 12:18
DX: R07.89 Other chest pain (principal); R42 Dizziness and giddiness; I25.10 Atherosclerotic heart disease of native coronary artery without angina pectoris; E78.00 Pure hypercholesterolemia, unspecified; I10 Essential (primary) hypertension; F17.200 Nicotine dependence, unspecified, uncomplicated; Z98.890 Other specified postprocedural states; Z88.0 Allergy status to penicillin; Z88.8 Allergy status to other drugs, medicaments and biological substances; Z79.82 Long term (current) use of aspirin; Z79.899 Other long term (current) drug therapy
CPT/HCPCS: 36415; 71045; 80053; 84484; 85025; 85610; 85730; 93005; 99284

== ENCOUNTER 2018-06-13 17:00 | Emergency (ER) | payer MEDICARE, OTHER ==
[~2018-06-13] VITALS: Ht 188 cm; Wt 81.8 kg
[2018-06-13] MEDS ORDERED: aspirin 325mg tablet PO ONE (17:10)
[2018-06-13] MEDS ORDERED: clonazePAM 0.5mg tablet PO ONE (17:25)
[2018-06-13 17:37] LABS: BASOPHILS % (AUTO) 0.8 % (0-1); EOSINOPHILS # (AUTO) 0.1 X10'3 (0-0.9); EOSINOPHILS % (AUTO) 1.6 % (0-6); HEMATOCRIT 43.2 % (42.0-52.0); HEMOGLOBIN 14.9 g/dl (14.0-17.9); LYMPHOCYTES # (AUTO) 1.4 X10'3 (1.1-4.8); LYMPHOCYTES % (AUTO) 25.1 % (21-51); MEAN CORPUSCULAR HEMOGLOBIN 32.4 PG (27.0-31.0); MEAN CORPUSCULAR HGB CONC 34.5 g/dL (33.0-36.5); MEAN CORPUSCULAR VOLUME 93.8 FL (78-98); MEAN PLATELET VOLUME 8.1 FL (7.4-10.4); MONOCYTES # (AUTO) 0.7 X10'3 (0-0.9); MONOCYTES % (AUTO) 11.5 % (2-12); NEUTROPHILS # (AUTO) 3.5 X10'3 (1.8-7.7); PLATELET COUNT 105 X10'3 (140-440); RED BLOOD COUNT 4.61 X10'6 (4.70-6.10); RED CELL DISTRIBUTION WIDTH 14.9 % (11.5-14.5); WHITE BLOOD COUNT 5.7 X10'3 (4.5-11.0)
[2018-06-13 17:45] LABS: INR 1.1 INR; PARTIAL THROMBOPLASTIN TIME 27 SECONDS (22-32)
[2018-06-13 17:46] LABS: ALANINE AMINOTRANSFERASE 72 U/L (12-78); ALBUMIN 3.7 G/DL (3.4-5.0); ALBUMIN/GLOBULIN RATIO 0.9 (1.1-1.5); ALKALINE PHOSPHATASE 107 IU/L (46-116); ANION GAP 1 (8-16); ASPARTATE AMINO TRANSFERASE 50 U/L (10-37); BILIRUBIN,TOTAL 0.7 MG/DL (0.1-1.0); BLOOD UREA NITROGEN 17 MG/DL (7-18); CALCIUM 9.4 MG/DL (8.5-10.1); CHLORIDE 99 MMOL/L (99-107); CREATININE 1.21 MG/DL (0.60-1.10); GLUCOSE 112 MG/DL (70-104); POTASSIUM 4.4 MMOL/L (3.5-5.1); SODIUM 133 MMOL/L (135-145); TOTAL CARBON DIOXIDE 32.9 MMOL/L (24-32); TOTAL PROTEIN 7.8 G/DL (6.4-8.2); eGFR 58 ML/MIN
--- NOTE | 2018-06-13 20:20 | NUR ---
I CALLED [facility] FOR PT, PT TO PAY FOR [facility].
[2018-06-13 20:21] VITALS: BP 139/95
== END 2018-06-13 20:23 | disposition home or self-care (01) ==
LOC: ER 17:01
DX: R07.89 Other chest pain (principal); I25.10 Atherosclerotic heart disease of native coronary artery without angina pectoris; E78.00 Pure hypercholesterolemia, unspecified; I10 Essential (primary) hypertension; F17.210 Nicotine dependence, cigarettes, uncomplicated; Z98.890 Other specified postprocedural states; Z79.899 Other long term (current) drug therapy; Z79.82 Long term (current) use of aspirin; Z88.1 Allergy status to other antibiotic agents; Z88.0 Allergy status to penicillin
CPT/HCPCS: 36415; 71045; 80053; 84484; 85025; 85610; 85730; 93005; 99284

== ENCOUNTER 2018-09-20 19:22 | Inpatient (IN) | payer MEDICARE, OTHER ==
[~2018-09-20] VITALS: Ht 188 cm; Wt 80.9 kg
--- NOTE | 2018-09-20 19:37 | NUR ---
STROKE NURSE AT BEDSIDE.
[2018-09-20 19:51] LABS: BASOPHILS % (AUTO) 0.7 % (0-1); EOSINOPHILS # (AUTO) 0.1 X10'3 (0-0.9); EOSINOPHILS % (AUTO) 0.9 % (0-6); HEMATOCRIT 43.2 % (42.0-52.0); HEMOGLOBIN 14.8 g/dl (14.0-17.9); LYMPHOCYTES # (AUTO) 1.5 X10'3 (1.1-4.8); LYMPHOCYTES % (AUTO) 22.2 % (21-51); MEAN CORPUSCULAR HEMOGLOBIN 32.5 PG (27.0-31.0); MEAN CORPUSCULAR HGB CONC 34.2 g/dL (33.0-36.5); MEAN PLATELET VOLUME 7.7 FL (7.4-10.4); MONOCYTES # (AUTO) 0.7 X10'3 (0-0.9); MONOCYTES % (AUTO) 10.9 % (2-12); NEUTROPHILS # (AUTO) 4.4 X10'3 (1.8-7.7); NEUTROPHILS % (AUTO) 65.3 % (42-75); PLATELET COUNT 100 X10'3 (140-440); RED BLOOD COUNT 4.55 X10'6 (4.70-6.10); RED CELL DISTRIBUTION WIDTH 14.1 % (11.5-14.5); WHITE BLOOD COUNT 6.8 X10'3 (4.5-11.0)
[2018-09-20 20:04] LABS: ALANINE AMINOTRANSFERASE 64 U/L (12-78); ALBUMIN 3.5 G/DL (3.4-5.0); ALBUMIN/GLOBULIN RATIO 0.8 (1.1-1.5); ALKALINE PHOSPHATASE 96 IU/L (46-116); ANION GAP 6 (8-16); ASPARTATE AMINO TRANSFERASE 42 U/L (10-37); BILIRUBIN,TOTAL 0.7 MG/DL (0.1-1.0); BLOOD UREA NITROGEN 17 MG/DL (7-18); BUN/CREATININE RATIO 16.2 (5.4-32.0); CALCIUM 8.5 MG/DL (8.5-10.1); CHLORIDE 93 MMOL/L (99-107); CREATININE 1.05 MG/DL (0.60-1.10); POTASSIUM 4.5 MMOL/L (3.5-5.1); SODIUM 126 MMOL/L (135-145); TOTAL CARBON DIOXIDE 26.8 MMOL/L (24-32); TOTAL PROTEIN 7.8 G/DL (6.4-8.2); eGFR 68 ML/MIN
[2018-09-20 20:06] LABS: GLUCOSE 107 MG/DL (70-104)
[2018-09-20 20:07] LABS: MAGNESIUM 1.7 MG/DL (1.5-2.4); PARTIAL THROMBOPLASTIN TIME 28 SECONDS (22-32); TROPONIN I < 0.04 NG/ML (0.0-0.05)
[2018-09-20 20:08] LABS: ETHANOL < 0.010 GM/DL (0.0-0.010)
--- NOTE | 2018-09-20 20:15 | NUR ---
Called for level 1 stroke at 1926, arrival time 1938. Pt just returning from [place]. Pt is alert with a slight sulrring of speech. Admits to taking xanax, Klonipin and zyprexa at approx 1800. Pt states that at 1500 today he developed a pain behind his left eye and some dizziness. He denies any weakness on one side. He states his left arm is numb as well as his left hand. Patient says his left hand is always numb.The left arm numbness is new with this event. He can feel light touch over both sides of his body,face,arms and legs however, equally. 1999 Tele-neurology consult with Dr Auguste completed. No TPA recommended. Admit for stroke work up.
[2018-09-20] MEDS ORDERED: ASPI-1130 PO (20:41)
[2018-09-20] MEDS ORDERED: ALPR0.5T9 PO (20:41)
[2018-09-20] MEDS ORDERED: OLAN10TA19 PO (20:41)
[2018-09-20] MEDS ORDERED: CLOP75TA35 PO (20:41)
[2018-09-20] MEDS ORDERED: LISI-600 PO (20:41)
[2018-09-20] MEDS ORDERED: ATOR10TA70 PO (20:41)
[2018-09-20] MEDS ORDERED: CLON-371 PO (20:41)
--- NOTE | 2018-09-20 20:54 | NUR ---
REPORT GIVEN TO Diego SCHWARZ RN, CHARGE ON ORTHO/NEURO.
[2018-09-20] MEDS ORDERED: mag hydrox/Alum hydrox/simeth 30ml oral suspension PO PRN (21:10)
[2018-09-20] MEDS ORDERED: acetaminophen 325mg tablet PO PRN (21:10)
[2018-09-20] MEDS ORDERED: magnesium hydroxide 30ml (MOM) UD suspension PO PRN (21:10)
[2018-09-20] MEDS ORDERED: ondansetron/PF 4mg/2ml inj IV PRN (21:10)
[2018-09-20 21:43] LABS: HEMOGLOBIN A1C 5.1 % (4.5-6.2)
--- NOTE | 2018-09-20 22:09 | NUR ---
Patient in ED. I have received report from LACHELLE Leon in ED and had the opportunity to ask questions and will assume patient care when pt arrives to unit.
[2018-09-20 22:36] LABS: CLARITY,URINE CLEAR (Clear); COLOR,URINE YELLOW (Yellow); GLUCOSE, URINE NEGATIVE (Neg); KETONES,URINE NEGATIVE (Neg); LEUKOCYTE ESTERASE ,URINE NEGATIVE (Neg); NITRITES, URINE NEGATIVE (Neg); OCCULT BLOOD,URINE NEGATIVE (Neg); PH,URINE 6.5 (4.8-8.0); PROTEIN,URINE NEGATIVE (Neg)
[2018-09-20 22:40] VITALS: BP 159/74
[2018-09-20 22:43] LABS: URINE AMPHETAMINE SCREEN NEGATIVE (Neg); URINE BARBITUATE SCREEN NEGATIVE (Neg); URINE BENZODIAZEPINES SCREEN POSITIVE (Neg); URINE CANNABINOID SCREEN NEGATIVE (Neg); URINE COCAINE SCREEN NEGATIVE (Neg); URINE METHADONE SCREEN NEGATIVE (Neg); URINE OPIATE SCREEN NEGATIVE (Neg); URINE PHENCYCLIDINE SCREEN NEGATIVE (Neg)
[2018-09-20 22:44] LABS: UA COLLECTION TYPE NON-SPECIFIED
[2018-09-20] MEDS ORDERED: ALPRAZolam 0.25mg tablet PO PRN (22:45)
[2018-09-20] MEDS: ALPRAZolam 0.5mg tablet PO SCH (23:06)
[2018-09-21 02:00] VITALS: BP 135/66
[2018-09-21 06:00] LABS: ALANINE AMINOTRANSFERASE 55 U/L (12-78); ALBUMIN 3.1 G/DL (3.4-5.0); ALBUMIN/GLOBULIN RATIO 0.8 (1.1-1.5); ALKALINE PHOSPHATASE 84 IU/L (46-116); ANION GAP 3 (8-16); ASPARTATE AMINO TRANSFERASE 41 U/L (10-37); BILIRUBIN,TOTAL 0.7 MG/DL (0.1-1.0); BLOOD UREA NITROGEN 13 MG/DL (7-18); BUN/CREATININE RATIO 12.5 (5.4-32.0); CALCIUM 8.6 MG/DL (8.5-10.1); CHLORIDE 99 MMOL/L (99-107); CHOL/HDL RATIO 1.7 (0.00-4.99); CHOLESTEROL 105 MG/DL (0-200); CREATININE 1.04 MG/DL (0.60-1.10); GLUCOSE 89 MG/DL (70-104); HDL CHOLESTEROL 63 MG/DL (35-60); LDL CHOLESTEROL 37 MG/DL (50-100); POTASSIUM 4.4 MMOL/L (3.5-5.1); SODIUM 131 MMOL/L (135-145); TOTAL CARBON DIOXIDE 29.3 MMOL/L (24-32); TOTAL PROTEIN 6.9 G/DL (6.4-8.2); TRIGLYCERIDES 24 MG/DL (20-135); eGFR 68 ML/MIN
[2018-09-21 06:02] LABS: BASOPHILS % (AUTO) 0.7 % (0-1); EOSINOPHILS # (AUTO) 0.1 X10'3 (0-0.9); EOSINOPHILS % (AUTO) 1.3 % (0-6); HEMATOCRIT 40.6 % (42.0-52.0); HEMOGLOBIN 13.9 g/dl (14.0-17.9); LYMPHOCYTES # (AUTO) 1.4 X10'3 (1.1-4.8); LYMPHOCYTES % (AUTO) 23.8 % (21-51); MEAN CORPUSCULAR HEMOGLOBIN 32.3 PG (27.0-31.0); MEAN CORPUSCULAR HGB CONC 34.2 g/dL (33.0-36.5); MEAN CORPUSCULAR VOLUME 94.3 FL (78-98); MEAN PLATELET VOLUME 7.8 FL (7.4-10.4); MONOCYTES # (AUTO) 0.6 X10'3 (0-0.9); MONOCYTES % (AUTO) 10.4 % (2-12); NEUTROPHILS # (AUTO) 3.6 X10'3 (1.8-7.7); NEUTROPHILS % (AUTO) 63.8 % (42-75); PLATELET COUNT 87 X10'3 (140-440); WHITE BLOOD COUNT 5.7 X10'3 (4.5-11.0)
--- NOTE | 2018-09-21 06:34 | NUR ---
Problems reprioritized. Patient report given, questions answered & plan of care reviewed with LACHELLE Mckeon and LACHELLE Roberson.
[2018-09-21 06:37] VITALS: BP 166/75
--- NOTE | 2018-09-21 06:38 | NUR ---
Patient in room ORTHO 4012. I have received report from Ally LAROSE and had the opportunity to ask questions and assume patient care.
--- NOTE | 2018-09-21 07:39 | NUR ---
Da [id number] Re: Linda [id number] Plt was 100 last night now is 87. Do you want me to hold the heparin?
[2018-09-21] MEDS: clonazePAM 1mg tablet PO SCH ×2 (07:42→12:51)
[2018-09-21] MEDS: ALPRAZolam 0.5mg tablet PO SCH ×2 (07:42→12:51)
[2018-09-21] MEDS ORDERED: clopidogrel 75mg tablet PO SCH (08:00)
[2018-09-21] MEDS ORDERED: aspirin 81mg tablet.DR PO SCH (08:00)
[2018-09-21] MEDS ORDERED: ALPRAZolam 0.5mg tablet PO SCH (08:00)
[2018-09-21] MEDS ORDERED: heparin, porcine 5000 units/ml vial SQ SCH (08:00)
[2018-09-21] MEDS ORDERED: olanzapine 10mg tablet PO SCH (08:00)
[2018-09-21] MEDS ORDERED: isosorbide mononitrate 30mg tab.SR.24H PO SCH (08:00)
[2018-09-21] MEDS ORDERED: atorvastatin 10mg tablet PO SCH (08:00)
[2018-09-21] MEDS ORDERED: lisinopril 20mg tablet PO SCH (08:00)
--- NOTE | 2018-09-21 09:54 | NUR ---
Da [id number] Re: [id number] Linda. Tele neuro recommends full dose of ASA, Pt already received 81mg dose of ASA this morning.
[2018-09-21 10:02] VITALS: BP 144/60
--- NOTE | 2018-09-21 13:25 | NUR ---
I AGREE WITH MY PRECEPTEE BISMARK LAROSE CHARTING.
--- NOTE | 2018-09-21 13:25 | NUR ---
Pt discharged home with taxi cab.
== END 2018-09-21 13:25 | disposition home or self-care (01) | DRG 301 ==
LOC: ER 19:23 → ORTHO 4S 22:02 → CMPBEDREQ 22:19
PROVIDERS: ADMIT Internal Medicine; ATTEND Family Medicine
DX: I73.9 Peripheral vascular disease, unspecified (principal); I70.8 Atherosclerosis of other arteries; J43.9 Emphysema, unspecified; E78.00 Pure hypercholesterolemia, unspecified; F03.90 Unspecified dementia, unspecified severity, without behavioral disturbance, psychotic disturbance, mood disturbance, and anxiety; F17.200 Nicotine dependence, unspecified, uncomplicated; I10 Essential (primary) hypertension; I25.10 Atherosclerotic heart disease of native coronary artery without angina pectoris; F41.9 Anxiety disorder, unspecified; Z88.1 Allergy status to other antibiotic agents; Z88.0 Allergy status to penicillin; Z79.899 Other long term (current) drug therapy; Z79.82 Long term (current) use of aspirin; Z79.02 Long term (current) use of antithrombotics/antiplatelets
CPT/HCPCS: 36415; 70450; 70551; 71045; 80053; 80061; 80305; 80320; 81003; 82948; 83036; 83735; 84484; 85025; 85610; 85730; 87081; 92508; 92616; 93005; 93306; 97116; 97161; 97530; 99285; G0378; J1644

== ENCOUNTER 2018-10-16 05:02 | Day surgery (SDC) | payer MEDICARE, MEDICAID ==
[2018-10-11 15:36] LABS: BASOPHILS % (AUTO) 0.5 % (0-1); EOSINOPHILS # (AUTO) 0.1 X10'3 (0-0.9); EOSINOPHILS % (AUTO) 1.2 % (0-6); HEMATOCRIT 43.6 % (42.0-52.0); HEMOGLOBIN 14.7 g/dl (14.0-17.9); LYMPHOCYTES # (AUTO) 1.3 X10'3 (1.1-4.8); MEAN CORPUSCULAR HEMOGLOBIN 31.7 PG (27.0-31.0); MEAN CORPUSCULAR HGB CONC 33.8 g/dL (33.0-36.5); MEAN PLATELET VOLUME 7.8 FL (7.4-10.4); MONOCYTES # (AUTO) 0.7 X10'3 (0-0.9); MONOCYTES % (AUTO) 10.1 % (2-12); NEUTROPHILS # (AUTO) 4.8 X10'3 (1.8-7.7); NEUTROPHILS % (AUTO) 69.2 % (42-75); PLATELET COUNT 99 X10'3 (140-440); RED BLOOD COUNT 4.64 X10'6 (4.70-6.10); RED CELL DISTRIBUTION WIDTH 14.1 % (11.5-14.5); WHITE BLOOD COUNT 6.9 X10'3 (4.5-11.0)
[2018-10-11 15:43] LABS: ALBUMIN 3.4 G/DL (3.4-5.0); ANION GAP 7 (8-16); BLOOD UREA NITROGEN 19 MG/DL (7-18); BUN/CREATININE RATIO 16.4 (5.4-32.0); CALCIUM 8.8 MG/DL (8.5-10.1); CHLORIDE 100 MMOL/L (99-107); CREATININE 1.16 MG/DL (0.60-1.10); GLUCOSE 82 MG/DL (70-104); POTASSIUM 4.4 MMOL/L (3.5-5.1); SODIUM 136 MMOL/L (135-145); TOTAL CARBON DIOXIDE 29.1 MMOL/L (24-32); eGFR 60 ML/MIN
[2018-10-11 15:52] LABS: PARTIAL THROMBOPLASTIN TIME 27 SECONDS (22-32)
[2018-10-16] VITALS (10 sets, daily range): BP systolic 151–169; BP diastolic 66–75
[~2018-10-16] VITALS: Ht 188 cm; Wt 75.3 kg
[~2018-10-16 05:02] MED LIST changes: -ALPR-624 PO; -ALPR0.5T8 PO; +ALPR0.5T9 PO; +ASPI-1130 PO; -ASPI-611 PO; -ATOR10TA PO; +ATOR10TA70 PO; +CLON-371 PO; -CLON-528 PO; -CLOP75TA15 PO; +CLOP75TA35 PO; +LISI-600 PO; -LISI-644 PO; -OLAN10TA3 PO
[2018-10-16] MEDS ORDERED: LORazepam 0.5 MG tablet PO PRN (05:20)
[2018-10-16] MEDS ORDERED: diphenhydrAMINE 25mg capsule PO PRN (05:20)
[2018-10-16] MEDS ORDERED: normal saline 1,000 ML IV SCH (05:20)
[2018-10-16] MEDS ORDERED: IBUP-1985 PO (05:41)
[2018-10-16] MEDS ORDERED: NITR0.4T51 SL (05:41)
[2018-10-16] MEDS ORDERED: fentaNYL/PF 50MCG/1 ML 2ML syringe ONE (06:05)
[2018-10-16] MEDS ORDERED: iohexol 350MG/ML 100ml bottle IV ONE ×2 (06:05→06:41)
[2018-10-16] MEDS ORDERED: midazolam 2 mg/2 ml injection ONE (06:05)
[2018-10-16] MEDS ORDERED: LIDOcaine 1% (10mg/ml)w/preservative injection 20ml MDV ONE (06:05)
[2018-10-16] MEDS ORDERED: heparin 1,000unit/ml 10ml vial 10 ML ONE (06:41)
[2018-10-16] MEDS ORDERED: iohexol 350 MG/ML 50ML vial IV ONE (06:56)
== END 2018-10-16 09:55 | disposition home or self-care (01) ==
LOC: SSTAY O 05:02
PROVIDERS: ATTEND Internal Medicine Interventional Cardiology
DX: R94.39 Abnormal result of other cardiovascular function study (principal); R07.89 Other chest pain; I25.10 Atherosclerotic heart disease of native coronary artery without angina pectoris; I25.82 Chronic total occlusion of coronary artery; I70.213 Atherosclerosis of native arteries of extremities with intermittent claudication, bilateral legs; I10 Essential (primary) hypertension; F41.0 Panic disorder [episodic paroxysmal anxiety]; E78.5 Hyperlipidemia, unspecified; F17.210 Nicotine dependence, cigarettes, uncomplicated; Z86.73 Personal history of transient ischemic attack (TIA), and cerebral infarction without residual deficits; Z79.899 Other long term (current) drug therapy; Z79.82 Long term (current) use of aspirin; Z79.01 Long term (current) use of anticoagulants
CPT/HCPCS: 36246; 36415; 75630; 80048; 85025; 85610; 85730; 93005; 93458; 99152; 99153; C1725; C1769; C9607; J1644; J2001; J2250; J3010; J7030; Q0163; Q9967; A4620; A6258; C1760

== ENCOUNTER 2018-10-19 19:38 | Emergency (ER) | payer MEDICARE, OTHER ==
[~2018-10-19] VITALS: Ht 188 cm; Wt 79.5 kg
[~2018-10-19 19:38] MED LIST changes: +IBUP-1985 PO; +NITR0.4T51 SL
--- NOTE | 2018-10-19 19:52 | NUR ---
DR ISRAEL AWARE OF LEVEL 2 TRAUMA
[2018-10-19] MEDS ORDERED: acetaminophen 325mg tablet PO ONE (21:00)
[2018-10-19 21:02] VITALS: BP 142/73
[2018-10-19] MEDS ORDERED: LIDOcaine 5% patch TP ONE (21:20)
[2018-10-19] MEDS ORDERED: ACET-2615 PO (21:20)
[2018-10-19] MEDS ORDERED: LIDO700A32 TOP (21:20)
[2018-10-19] MEDS: LIDOcaine 5% patch TP SCH ×2 (21:53→22:02)
[2018-10-20] MEDS ORDERED: LIDOcaine 5% patch TP SCH ×2 (08:00)
== END 2018-10-19 22:04 | disposition home or self-care (01) ==
LOC: ER 19:39
DX: S09.8XXA Other specified injuries of head, initial encounter (principal); N64.4 Mastodynia; F03.90 Unspecified dementia, unspecified severity, without behavioral disturbance, psychotic disturbance, mood disturbance, and anxiety; I25.10 Atherosclerotic heart disease of native coronary artery without angina pectoris; E78.00 Pure hypercholesterolemia, unspecified; I10 Essential (primary) hypertension; F41.9 Anxiety disorder, unspecified; Z98.890 Other specified postprocedural states; Z88.1 Allergy status to other antibiotic agents; Z88.0 Allergy status to penicillin; Z79.82 Long term (current) use of aspirin; Z79.899 Other long term (current) drug therapy; W18.09XA Striking against other object with subsequent fall, initial encounter; Y93.89 Activity, other specified; Y92.89 Other specified places as the place of occurrence of the external cause; Y99.8 Other external cause status
CPT/HCPCS: 70450; 71045; 93005; 99284

== ENCOUNTER 2018-12-11 23:44 | Emergency (ER) | payer MEDICARE, MEDICAID ==
[~2018-12-11] VITALS: Ht 188 cm; Wt 80.9 kg
[~2018-12-11 23:44] MED LIST changes: +LIDO700A32 TOP
[2018-12-12 00:25] VITALS: BP 163/85
[2018-12-12 00:35] LABS: BASOPHILS % (AUTO) 0.7 % (0-1); EOSINOPHILS # (AUTO) 0.1 X10'3 (0-0.9); EOSINOPHILS % (AUTO) 2.5 % (0-6); HEMATOCRIT 44.6 % (42.0-52.0); HEMOGLOBIN 15.3 g/dl (14.0-17.9); LYMPHOCYTES # (AUTO) 1.4 X10'3 (1.1-4.8); LYMPHOCYTES % (AUTO) 26.5 % (21-51); MEAN CORPUSCULAR HEMOGLOBIN 32.4 PG (27.0-31.0); MEAN CORPUSCULAR HGB CONC 34.3 g/dL (33.0-36.5); MEAN CORPUSCULAR VOLUME 94.4 FL (78-98); MONOCYTES # (AUTO) 0.5 X10'3 (0-0.9); MONOCYTES % (AUTO) 9.6 % (2-12); NEUTROPHILS # (AUTO) 3.1 X10'3 (1.8-7.7); NEUTROPHILS % (AUTO) 60.7 % (42-75); PLATELET COUNT 88 X10'3 (140-440); RED BLOOD COUNT 4.72 X10'6 (4.70-6.10); RED CELL DISTRIBUTION WIDTH 14.2 % (11.5-14.5); WHITE BLOOD COUNT 5.2 X10'3 (4.5-11.0)
[2018-12-12 00:48] LABS: ALANINE AMINOTRANSFERASE 73 U/L (12-78); ALBUMIN 3.6 G/DL (3.4-5.0); ALBUMIN/GLOBULIN RATIO 0.8 (1.1-1.5); ALKALINE PHOSPHATASE 101 IU/L (46-116); ANION GAP 7 (8-16); ASPARTATE AMINO TRANSFERASE 51 U/L (10-37); BLOOD UREA NITROGEN 19 MG/DL (7-18); BUN/CREATININE RATIO 16.5 (5.4-32.0); CALCIUM 9.1 MG/DL (8.5-10.1); CHLORIDE 95 MMOL/L (99-107); CREATININE 1.15 MG/DL (0.60-1.10); POTASSIUM 4.2 MMOL/L (3.5-5.1); SODIUM 130 MMOL/L (135-145); TOTAL CARBON DIOXIDE 28.4 MMOL/L (24-32); eGFR 61 ML/MIN
[2018-12-12 00:50] LABS: PARTIAL THROMBOPLASTIN TIME 28 SECONDS (22-32)
[2018-12-12 00:51] LABS: GLUCOSE 103 MG/DL (70-104)
== END 2018-12-12 01:56 | disposition home or self-care (01) ==
LOC: ER 23:46
DX: R51 Headache (principal); R53.1 Weakness; R20.0 Anesthesia of skin; R20.2 Paresthesia of skin; R79.1 Abnormal coagulation profile; I25.10 Atherosclerotic heart disease of native coronary artery without angina pectoris; E78.00 Pure hypercholesterolemia, unspecified; I10 Essential (primary) hypertension; F41.9 Anxiety disorder, unspecified; F03.90 Unspecified dementia, unspecified severity, without behavioral disturbance, psychotic disturbance, mood disturbance, and anxiety; F17.200 Nicotine dependence, unspecified, uncomplicated; Z88.0 Allergy status to penicillin; Z88.1 Allergy status to other antibiotic agents; Z79.899 Other long term (current) drug therapy; Z79.82 Long term (current) use of aspirin; Z98.890 Other specified postprocedural states
CPT/HCPCS: 36415; 70450; 71045; 80053; 82948; 85025; 85610; 85730; 86885; 86900; 86901; 93005; 99284

== ENCOUNTER 2018-12-15 09:26 | Emergency (ER) | payer MEDICARE, MEDICAID ==
[~2018-12-15] VITALS: Ht 188 cm; Wt 75.9 kg
[2018-12-15] MEDS ORDERED: ketorolac trometh. 30mg/ml inj. IV ONE (10:25)
--- NOTE | 2018-12-15 10:30 | NUR ---
STROKE ALERT CANCELED BY DR MOLINA
[2018-12-15 10:35] LABS: BASOPHILS % (AUTO) 0.9 % (0-1); EOSINOPHILS % (AUTO) 0.8 % (0-6); HEMATOCRIT 46.3 % (42.0-52.0); HEMOGLOBIN 15.7 g/dl (14.0-17.9); LYMPHOCYTES # (AUTO) 0.8 X10'3 (1.1-4.8); LYMPHOCYTES % (AUTO) 14.2 % (21-51); MEAN CORPUSCULAR HEMOGLOBIN 31.8 PG (27.0-31.0); MEAN CORPUSCULAR HGB CONC 33.9 g/dL (33.0-36.5); MEAN CORPUSCULAR VOLUME 93.7 FL (78-98); MONOCYTES # (AUTO) 0.6 X10'3 (0-0.9); MONOCYTES % (AUTO) 11.1 % (2-12); NEUTROPHILS # (AUTO) 3.9 X10'3 (1.8-7.7); PLATELET COUNT 93 X10'3 (140-440); RED BLOOD COUNT 4.93 X10'6 (4.70-6.10); RED CELL DISTRIBUTION WIDTH 14.4 % (11.5-14.5); WHITE BLOOD COUNT 5.4 X10'3 (4.5-11.0)
[2018-12-15] MEDS ORDERED: ketorolac tromethamine 15mg/ml inj. IM ONE (10:45)
[2018-12-15 10:51] LABS: ALANINE AMINOTRANSFERASE 67 U/L (12-78); ALBUMIN 3.7 G/DL (3.4-5.0); ALBUMIN/GLOBULIN RATIO 0.8 (1.1-1.5); ALKALINE PHOSPHATASE 103 IU/L (46-116); ANION GAP 5 (8-16); ASPARTATE AMINO TRANSFERASE 50 U/L (10-37); BILIRUBIN,TOTAL 0.9 MG/DL (0.1-1.0); BLOOD UREA NITROGEN 16 MG/DL (7-18); BUN/CREATININE RATIO 13.9 (5.4-32.0); CALCIUM 9.1 MG/DL (8.5-10.1); CHLORIDE 99 MMOL/L (99-107); CREATININE 1.15 MG/DL (0.60-1.10); POTASSIUM 4.6 MMOL/L (3.5-5.1); SODIUM 133 MMOL/L (135-145); TOTAL CARBON DIOXIDE 29.5 MMOL/L (24-32); TOTAL PROTEIN 8.3 G/DL (6.4-8.2); eGFR 61 ML/MIN
[2018-12-15 10:52] LABS: GLUCOSE 95 MG/DL (70-104); PARTIAL THROMBOPLASTIN TIME 27 SECONDS (22-32)
[2018-12-15] MEDS ORDERED: ketorolac trometh. 30mg/ml inj. IM ONE (11:00)
[2018-12-15 12:17] VITALS: BP 143/90
== END 2018-12-15 12:22 | disposition home or self-care (01) ==
LOC: ER 09:27
DX: R51 Headache (principal); I25.10 Atherosclerotic heart disease of native coronary artery without angina pectoris; E78.00 Pure hypercholesterolemia, unspecified; I10 Essential (primary) hypertension; F17.200 Nicotine dependence, unspecified, uncomplicated; Z98.890 Other specified postprocedural states; Z88.1 Allergy status to other antibiotic agents; Z88.0 Allergy status to penicillin; Z79.82 Long term (current) use of aspirin; Z79.899 Other long term (current) drug therapy
CPT/HCPCS: 36415; 70450; 71045; 80053; 85025; 85610; 85730; 86885; 86900; 86901; 93005; 96372; 99284; J1885

== ENCOUNTER 2018-12-23 14:54 | Emergency (ER) | payer MEDICARE, MEDICAID ==
[~2018-12-23] VITALS: Ht 180.3 cm; Wt 76.0 kg
--- NOTE | 2018-12-23 15:09 | NUR ---
TO CT SCAN
--- NOTE | 2018-12-23 15:18 | NUR ---
patient back in the room from ct.
[2018-12-23 15:19] LABS: BASOPHILS % (AUTO) 0.9 % (0-1); EOSINOPHILS # (AUTO) 0.1 X10'3 (0-0.9); EOSINOPHILS % (AUTO) 1.7 % (0-6); HEMATOCRIT 45.7 % (42.0-52.0); HEMOGLOBIN 15.5 g/dl (14.0-17.9); LYMPHOCYTES # (AUTO) 1.5 X10'3 (1.1-4.8); LYMPHOCYTES % (AUTO) 25.5 % (21-51); MEAN CORPUSCULAR HEMOGLOBIN 32.1 PG (27.0-31.0); MEAN CORPUSCULAR VOLUME 94.6 FL (78-98); MEAN PLATELET VOLUME 7.9 FL (7.4-10.4); MONOCYTES # (AUTO) 0.7 X10'3 (0-0.9); NEUTROPHILS # (AUTO) 3.4 X10'3 (1.8-7.7); NEUTROPHILS % (AUTO) 59.9 % (42-75); PLATELET COUNT 105 X10'3 (140-440); RED BLOOD COUNT 4.83 X10'6 (4.70-6.10); RED CELL DISTRIBUTION WIDTH 14.1 % (11.5-14.5); WHITE BLOOD COUNT 5.7 X10'3 (4.5-11.0)
[2018-12-23 15:32] LABS: PARTIAL THROMBOPLASTIN TIME 27 SECONDS (22-32)
[2018-12-23 15:35] LABS: ANION GAP 3 (8-16); BLOOD UREA NITROGEN 19 MG/DL (7-18); CHLORIDE 97 MMOL/L (99-107); CREATININE 1.38 MG/DL (0.60-1.10); POTASSIUM 5.1 MMOL/L (3.5-5.1); SODIUM 132 MMOL/L (135-145); TOTAL CARBON DIOXIDE 31.7 MMOL/L (24-32)
[2018-12-23 15:36] LABS: ALANINE AMINOTRANSFERASE 68 U/L (12-78); ALBUMIN 3.5 G/DL (3.4-5.0); ALBUMIN/GLOBULIN RATIO 0.8 (1.1-1.5); ALKALINE PHOSPHATASE 99 IU/L (46-116); ASPARTATE AMINO TRANSFERASE 52 U/L (10-37); BILIRUBIN,TOTAL 0.9 MG/DL (0.1-1.0); BUN/CREATININE RATIO 13.8 (5.4-32.0); CALCIUM 9.1 MG/DL (8.5-10.1); TOTAL PROTEIN 7.9 G/DL (6.4-8.2); eGFR 49 ML/MIN
[2018-12-23 15:37] LABS: GLUCOSE 117 MG/DL (70-104)
[2018-12-23 15:38] LABS: TROPONIN I < 0.04 NG/ML (0.0-0.05)
[2018-12-23] MEDS ORDERED: normal saline 1000ML IV soln IVB ONE (15:55)
[2018-12-23] MEDS ORDERED: acetaminophen 325mg tablet PO ONE (15:55)
--- NOTE | 2018-12-23 16:32 | NUR ---
Patient ambulated by tech darien 150 feet,patient tolerated well.Denies dizziness.
[2018-12-23 16:34] VITALS: BP 176/78
== END 2018-12-23 16:43 | disposition home or self-care (01) ==
LOC: ER 14:55
DX: R55 Syncope and collapse (principal); R42 Dizziness and giddiness; I25.10 Atherosclerotic heart disease of native coronary artery without angina pectoris; E78.00 Pure hypercholesterolemia, unspecified; I10 Essential (primary) hypertension; Z86.73 Personal history of transient ischemic attack (TIA), and cerebral infarction without residual deficits; Z98.890 Other specified postprocedural states; Z88.1 Allergy status to other antibiotic agents; Z88.0 Allergy status to penicillin; Z79.82 Long term (current) use of aspirin; Z79.899 Other long term (current) drug therapy
CPT/HCPCS: 36415; 70450; 71045; 80053; 82948; 84484; 85025; 85610; 85730; 93005; 96360; 99284; J7030

== ENCOUNTER 2019-01-05 11:31 | Emergency (ER) | payer MEDICARE, MEDICAID ==
[~2019-01-05] VITALS: Ht 188 cm; Wt 79.5 kg
[2019-01-05 11:34] VITALS: BP 146/77
[2019-01-05] MEDS ORDERED: triamcinolone acetonide 40mg/ml inj IM ONE (12:50)
[2019-01-05] MEDS ORDERED: diphenhydrAMINE 25mg capsule PO ONE (12:50)
== END 2019-01-05 14:10 | disposition home or self-care (01) ==
LOC: ER 11:31
DX: T78.3XXA Angioneurotic edema, initial encounter (principal); F03.90 Unspecified dementia, unspecified severity, without behavioral disturbance, psychotic disturbance, mood disturbance, and anxiety; I25.10 Atherosclerotic heart disease of native coronary artery without angina pectoris; E78.00 Pure hypercholesterolemia, unspecified; I10 Essential (primary) hypertension; F41.9 Anxiety disorder, unspecified; Z98.890 Other specified postprocedural states; Z88.0 Allergy status to penicillin; Z88.1 Allergy status to other antibiotic agents; Z79.82 Long term (current) use of aspirin; Z79.899 Other long term (current) drug therapy
CPT/HCPCS: 96372; 99283; J3301; Q0163

== ENCOUNTER 2019-02-16 15:29 | Observation (INO) | payer MEDICARE, MEDICAID ==
[~2019-02-16] VITALS: Ht 188 cm; Wt 71.0 kg
[~2019-02-16 15:29] MED LIST changes: -IBUP-1985 PO; -LIDO700A32 TOP; -NICO-687 TD; -NITR0.4T51 SL
--- NOTE | 2019-02-16 16:43 | NUR ---
MD BASILIO STATES PT IS NOT A TRAUMA AND OFF TRAUMA STATUS. IN MRI AT THIS TIME.
[2019-02-16] MEDS ORDERED: magnesium hydroxide 30ml (MOM) UD suspension PO PRN (17:35)
[2019-02-16] MEDS ORDERED: ondansetron/PF 4mg/2ml inj IV PRN (17:35)
[2019-02-16] MEDS ORDERED: mag hydrox/Alum hydrox/simeth 30ml oral suspension PO PRN (17:35)
[2019-02-16] MEDS ORDERED: acetaminophen 325mg tablet PO PRN (17:35)
--- NOTE | 2019-02-16 17:48 | NUR ---
BACK FROM MRI
[2019-02-16 18:17] LABS: CHOL/HDL RATIO 1.8 (0.00-4.99); CHOLESTEROL 115 MG/DL (0-200); HDL CHOLESTEROL 63 MG/DL (35-60); LDL CHOLESTEROL 46 MG/DL (50-100); TRIGLYCERIDES 37 MG/DL (20-135)
--- NOTE | 2019-02-16 18:19 | NUR ---
REFUSED IV, AWARE.
[2019-02-16 19:17] LABS: URINE AMPHETAMINE SCREEN NEGATIVE (Neg); URINE BARBITUATE SCREEN NEGATIVE (Neg); URINE BENZODIAZEPINES SCREEN POSITIVE (Neg); URINE CANNABINOID SCREEN NEGATIVE (Neg); URINE METHADONE SCREEN NEGATIVE (Neg); URINE OPIATE SCREEN NEGATIVE (Neg); URINE PHENCYCLIDINE SCREEN NEGATIVE (Neg)
[2019-02-16 19:30] VITALS: BP 177/79
[2019-02-16 19:54] LABS: URINE COCAINE SCREEN NEGATIVE (Neg)
[2019-02-16] MEDS: ALPRAZolam 0.5mg tablet PO SCH (20:21)
[2019-02-16] MEDS: clonazePAM 0.5mg tablet PO SCH (20:21)
[2019-02-16] MEDS ORDERED: olanzapine 10mg tablet PO SCH (21:00)
[2019-02-17] VITALS: BP 152/67
[2019-02-17 04:00] VITALS: BP 179/82
[2019-02-17 06:00] VITALS: BP 181/77
--- NOTE | 2019-02-17 06:47 | NUR ---
Patient in room ORTHO 4022. I have received report from May and had the opportunity to ask questions and assume patient care.
[2019-02-17] MEDS: ALPRAZolam 0.5mg tablet PO SCH ×2 (07:49→12:50)
[2019-02-17] MEDS: clonazePAM 0.5mg tablet PO SCH (07:49)
[2019-02-17 08:00] VITALS: BP 181/77
[2019-02-17] MEDS ORDERED: clopidogrel 75mg tablet PO SCH (08:00)
[2019-02-17] MEDS ORDERED: isosorbide mononitrate 30mg tab.SR.24H PO SCH (08:00)
[2019-02-17] MEDS ORDERED: atorvastatin 10mg tablet PO SCH (08:00)
[2019-02-17] MEDS ORDERED: aspirin 81mg tablet.DR PO SCH (08:00)
[2019-02-17 12:00] VITALS: BP 137/68
--- NOTE | 2019-02-17 13:29 | NUR ---
Meds given back to pt and daughter. IV dc'd. Discharge instructions, follow up appointments gone over with daughter. Discharged to home via wc with daughter.
== END 2019-02-17 13:30 | disposition home or self-care (01) ==
LOC: ER 15:29 → ED HOLD 17:36 → EDBEDREQ 18:39 → ORTHO 4S 19:05
PROVIDERS: ADMIT Family Medicine; ATTEND Family Medicine
DX: I63.9 Cerebral infarction, unspecified (principal); F41.9 Anxiety disorder, unspecified; I25.10 Atherosclerotic heart disease of native coronary artery without angina pectoris; F03.90 Unspecified dementia, unspecified severity, without behavioral disturbance, psychotic disturbance, mood disturbance, and anxiety; E78.5 Hyperlipidemia, unspecified; I10 Essential (primary) hypertension; E78.00 Pure hypercholesterolemia, unspecified; Z86.73 Personal history of transient ischemic attack (TIA), and cerebral infarction without residual deficits; Z79.899 Other long term (current) drug therapy; Z88.0 Allergy status to penicillin
CPT/HCPCS: 36415; 70544; 70547; 70551; 72141; 80061; 80305; 87081; 93005; 97116; 97162; 97530; 99284; G0378

== ENCOUNTER 2019-02-22 10:42 | Emergency (ER) | payer MEDICARE, MEDICAID ==
[~2019-02-22] VITALS: Ht 190.5 cm; Wt 71.0 kg
[~2019-02-22 10:42] MED LIST changes: -LISI-600 PO
[2019-02-22 12:36] VITALS: BP 118/70
== END 2019-02-22 12:40 | disposition home or self-care (01) ==
LOC: ER 10:42
DX: R20.0 Anesthesia of skin (principal); R20.2 Paresthesia of skin; R07.9 Chest pain, unspecified; F03.90 Unspecified dementia, unspecified severity, without behavioral disturbance, psychotic disturbance, mood disturbance, and anxiety; I25.10 Atherosclerotic heart disease of native coronary artery without angina pectoris; E78.00 Pure hypercholesterolemia, unspecified; I10 Essential (primary) hypertension; F41.9 Anxiety disorder, unspecified; Z88.0 Allergy status to penicillin; Z88.1 Allergy status to other antibiotic agents; Z79.899 Other long term (current) drug therapy; Z79.82 Long term (current) use of aspirin; Z86.73 Personal history of transient ischemic attack (TIA), and cerebral infarction without residual deficits; Z98.890 Other specified postprocedural states
CPT/HCPCS: 82948; 93005; 99284

== ENCOUNTER 2019-04-20 12:15 | Emergency (ER) | payer MEDICARE, MEDICAID ==
[~2019-04-20] VITALS: Ht 188 cm; Wt 80.0 kg
[2019-04-20] MEDS ORDERED: LIDOcaine 5% patch TP SCH (13:45)
[2019-04-20] MEDS ORDERED: acetaminophen w/codeine (30MG) #3 tablet PO ONE (13:45)
[2019-04-20 13:46] LABS: BASOPHILS # (AUTO) 0.1 X10'3 (0-0.2); BASOPHILS % (AUTO) 0.7 % (0-1); EOSINOPHILS % (AUTO) 0.6 % (0-6); HEMATOCRIT 46.5 % (42.0-52.0); HEMOGLOBIN 15.8 g/dl (14.0-17.9); LYMPHOCYTES # (AUTO) 1.2 X10'3 (1.1-4.8); LYMPHOCYTES % (AUTO) 15.5 % (21-51); MEAN CORPUSCULAR HEMOGLOBIN 31.7 PG (27.0-31.0); MEAN CORPUSCULAR VOLUME 93.4 FL (78-98); MEAN PLATELET VOLUME 8.2 FL (7.4-10.4); MONOCYTES # (AUTO) 0.7 X10'3 (0-0.9); MONOCYTES % (AUTO) 9.8 % (2-12); NEUTROPHILS # (AUTO) 5.5 X10'3 (1.8-7.7); NEUTROPHILS % (AUTO) 73.4 % (42-75); PLATELET COUNT 105 X10'3 (140-440); RED BLOOD COUNT 4.98 X10'6 (4.70-6.10); RED CELL DISTRIBUTION WIDTH 14.7 % (11.5-14.5); WHITE BLOOD COUNT 7.6 X10'3 (4.5-11.0)
[2019-04-20 14:02] LABS: ALANINE AMINOTRANSFERASE 65 U/L (12-78); ALBUMIN 3.6 G/DL (3.4-5.0); ALBUMIN/GLOBULIN RATIO 0.8 (1.1-1.5); ALKALINE PHOSPHATASE 110 IU/L (46-116); ANION GAP 3 (8-16); ASPARTATE AMINO TRANSFERASE 54 U/L (10-37); BLOOD UREA NITROGEN 11 MG/DL (7-18); BUN/CREATININE RATIO 9.9 (5.4-32.0); CALCIUM 8.8 MG/DL (8.5-10.1); CHLORIDE 102 MMOL/L (99-107); CREATININE 1.11 MG/DL (0.60-1.10); GLUCOSE 148 MG/DL (70-104); SODIUM 138 MMOL/L (135-145); TOTAL PROTEIN 7.9 G/DL (6.4-8.2); eGFR 63 ML/MIN
[2019-04-20] MEDS ORDERED: LIDO700A32 TOP (14:19)
[2019-04-20] MEDS ORDERED: ACET-1025 PO (14:19)
[2019-04-20 14:44] VITALS: BP 152/92
== END 2019-04-20 14:46 | disposition home or self-care (01) ==
LOC: ER 12:19
DX: S20.212A Contusion of left front wall of thorax, initial encounter (principal); F03.90 Unspecified dementia, unspecified severity, without behavioral disturbance, psychotic disturbance, mood disturbance, and anxiety; I25.10 Atherosclerotic heart disease of native coronary artery without angina pectoris; E78.00 Pure hypercholesterolemia, unspecified; I10 Essential (primary) hypertension; F41.9 Anxiety disorder, unspecified; Z72.89 Other problems related to lifestyle; Z88.0 Allergy status to penicillin; Z88.8 Allergy status to other drugs, medicaments and biological substances; Z79.82 Long term (current) use of aspirin; Z79.899 Other long term (current) drug therapy; Z86.73 Personal history of transient ischemic attack (TIA), and cerebral infarction without residual deficits; W01.0XXA Fall on same level from slipping, tripping and stumbling without subsequent striking against object, initial encounter; Y93.89 Activity, other specified; Y92.89 Other specified places as the place of occurrence of the external cause; Y99.8 Other external cause status
CPT/HCPCS: 36415; 71101; 80053; 85025; 99284